=== PATIENT | male | born 1945 | race Caucasian/White ===

== ENCOUNTER 2017-09-23 09:28 | Day surgery (SDC) | payer MEDICARE, OTHER ==
--- NOTE | 2017-09-23 10:05 | PCM.HPR ---
H & P Addendum review - H & P Addendum Review Date of Original H & P: 09/14/17 Date Reviewed: 09/23/17 Time Reviewed: 10:00 Patient was Examined: No Changes
[2017-09-23] MEDS ORDERED: Midazolam 1 MG/ML 2 ML SDV ONE ×2 (10:06→10:07)
[2017-09-23] MEDS ORDERED: fentaNYL 100 MCG/2 ML SDV ONE ×2 (10:06→10:07)
[2017-09-23] MEDS ORDERED: Propofol 200 MG/20 ML SDV ONE ×2 (10:07)
--- NOTE | 2017-09-23 10:36 | PCM.OPNOTE ---
- General Post-Op/Procedure Note Date of Surgery/Procedure: 09/23/17 Operative Procedure(s): Colonoscopy Findings: normal Pre Op Diagnosis: Hx Colon Polyps Post-Op Diagnosis: Same Anesthesia Technique: MAC Primary Surgeon: Boone Sherman Anesthesia Provider: Vicky Chao Complications: None Condition: Good Free Text/Narrative:: Intake & Output 09/22/17 09/23/17 09/23/17 22:59 06:59 14:59 Intake Total 200 Balance 200
[2017-09-23] MEDS ORDERED: Sodium Chloride 0.9% 10 ML Syringe FLUSH PRN (11:45)
[2017-09-23] MEDS ORDERED: Lactated Ringers 1,000 ML IV SCH (11:45)
--- NOTE | 2017-09-23 12:00 | OR ---
Date of Procedure: 09/23/2017 PREOPERATIVE DIAGNOSIS: History of colon polyps. POSTOPERATIVE DIAGNOSIS: Normal colonoscopy. PROCEDURE: Colonoscopy. ANESTHESIA: IV sedation. DESCRIPTION OF PROCEDURE: The patient was brought to the procedure room, where he was placed on the left side and IV sedation administered. Digital rectal exam was performed which was normal. Colonoscope was inserted and advanced to the level of the cecum with some difficulty getting over the ileocecal valve, requiring changing him to the supine position. I was unable to get into the cecum which was confirmed by identifying the appendiceal lumen. The prep was good and surfaces were well visualized. Upon withdrawing the scope, the ascending, transverse, and descending colon were normal in appearance. Sigmoid colon and rectum were normal. Retroflexion was normal. Air was removed and the scope withdrawn. The patient tolerated the procedure well and returned to recovery in stable condition. Recommend routine colon surveillance again in 5 years. EVANS REDMOND MD /[id number]
== END 2017-09-23 11:50 | disposition home or self-care (01) ==
LOC: LL.SDS 09:28
PROVIDERS: ATTEND Surgery
DX: Z12.11 Encounter for screening for malignant neoplasm of colon (principal); I10 Essential (primary) hypertension; I25.10 Atherosclerotic heart disease of native coronary artery without angina pectoris; J44.9 Chronic obstructive pulmonary disease, unspecified; M25.561 Pain in right knee; E78.2 Mixed hyperlipidemia; F17.210 Nicotine dependence, cigarettes, uncomplicated; Z90.49 Acquired absence of other specified parts of digestive tract; Z98.52 Vasectomy status; Z93.0 Tracheostomy status; Z79.82 Long term (current) use of aspirin; Z79.891 Long term (current) use of opiate analgesic; Z79.899 Other long term (current) drug therapy; Z86.010 Personal history of colon polyps
CPT/HCPCS: G0121; J2250; J2704; J3010; 00812

== ENCOUNTER 2019-12-30 17:06 | Emergency (ER) | payer MEDICARE, OTHER ==
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
[2019-12-30] MEDS ORDERED: Bacitracin/Neomycin/Polymyxin B Oint 0.9 GM U/D Packet TOP ONE (17:44)
== END 2019-12-30 18:35 | disposition home or self-care (01) ==
LOC: LL.ED 17:06
DX: S92.424A Nondisplaced fracture of distal phalanx of right great toe, initial encounter for closed fracture (principal); S91.201A Unspecified open wound of right great toe with damage to nail, initial encounter; S90.31XA Contusion of right foot, initial encounter; M89.49 Other hypertrophic osteoarthropathy, multiple sites; F17.210 Nicotine dependence, cigarettes, uncomplicated; I25.10 Atherosclerotic heart disease of native coronary artery without angina pectoris; I10 Essential (primary) hypertension; J44.9 Chronic obstructive pulmonary disease, unspecified; F41.9 Anxiety disorder, unspecified; F32.9 Major depressive disorder, single episode, unspecified; G91.9 Hydrocephalus, unspecified; E78.00 Pure hypercholesterolemia, unspecified; I25.2 Old myocardial infarction; M19.90 Unspecified osteoarthritis, unspecified site; Z79.82 Long term (current) use of aspirin; W22.8XXA Striking against or struck by other objects, initial encounter; Z79.899 Other long term (current) drug therapy
CPT/HCPCS: 11730; 73620; 99283; J2001

== ENCOUNTER 2020-05-04 02:50 | Emergency (ER) | payer MEDICARE, OTHER ==
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
== END 2020-05-04 03:50 | disposition home or self-care (01) ==
LOC: LL.ED 02:50
DX: Z04.3 Encounter for examination and observation following other accident (principal); I25.10 Atherosclerotic heart disease of native coronary artery without angina pectoris; E78.00 Pure hypercholesterolemia, unspecified; I10 Essential (primary) hypertension; I25.2 Old myocardial infarction; J44.9 Chronic obstructive pulmonary disease, unspecified; M19.90 Unspecified osteoarthritis, unspecified site; F41.9 Anxiety disorder, unspecified; F17.210 Nicotine dependence, cigarettes, uncomplicated; F32.9 Major depressive disorder, single episode, unspecified; Z79.82 Long term (current) use of aspirin; Z79.899 Other long term (current) drug therapy
CPT/HCPCS: 96374; 99284-25

== ENCOUNTER 2020-08-10 00:46 | Inpatient (IN) | payer MEDICARE, OTHER ==
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
[2020-08-10 01:36] LABS: CHLORIDE,CL 100 mmol/L (98-107); SODIUM,NA 134 mmol/L (136-145)
[2020-08-10] MEDS ORDERED: methylPREDNISolone Sodium Succinate 125 MG/2 ML SDV IVPUSH ONE ×2 (01:52→21:14)
[2020-08-10] MEDS: Albuterol/Ipratropium 3.0-0.5 MG/3 ML Neb Soln NEB SCH ×4 (03:01→19:27)
[2020-08-10] MEDS: Sodium Chloride 0.9% 10 ML Syringe FLUSH PRN ×2 (03:12→21:30)
[2020-08-10] MEDS ORDERED: QUEtiapine 100 MG Tab PO STA (03:21)
[2020-08-10] MEDS ORDERED: ALPRAZolam 0.25 MG Tab PO ONE (03:23)
[2020-08-10] MEDS: Lisinopril 20 MG Tab PO SCH (07:56)
[2020-08-10] MEDS ORDERED: Metoprolol Succinate 25 MG Tab.ER PO SCH (08:00)
[2020-08-10] MEDS ORDERED: Nicotine 21 MG/24 Hr Patch TRDERM SCH (15:30)
--- NOTE | 2020-08-10 15:45 | PCM.PN ---
- General Info Date of Service: 08/10/20 Admission Dx/Problem (Free Text): Weakness/falls/dysequilibrium/COPD Subjective Update: Patient reports that his shortness of breath has improved on the nebs Functional Status: Reports: Pain Controlled, Tolerating Diet, Urinating. Denies: Ambulating, New Symptoms - Review of Systems General: Reports: Weakness. Denies: Fever, Malaise, Chills, Night Sweats HEENT: Reports: Glasses. Denies: Headaches, Sinus Congestion, Sore Throat, Visual Changes Pulmonary: Reports: Shortness of Breath, Cough (smokers cough/no acute changes), Wheezing. Denies: Pleuritic Chest Pain, Sputum, Hemoptysis Cardiovascular: Reports: Dyspnea on Exertion, Lightheadedness, Other. Denies: Chest Pain, Palpitations, Orthopnea, PND, Edema Gastrointestinal: Reports: No Symptoms Genitourinary: Denies: Dysuria, Frequency, Burning, Pain, Hematuria, Flank Pain Musculoskeletal: Reports: Other (no acute changes from baseline) Skin: Reports: No Symptoms Neurological: Reports: Dizziness, Difficulty Walking, Weakness. Denies: Confusion, Headache, Numbness, Paresthesia, Pre-Existing Deficit, Trouble Speaking, Change in Speech Psychiatric: Reports: No Symptoms - Patient Data Vitals - Most Recent: Last Vital Signs Temp 36.6 C 08/10/20 12:00 Pulse 96 08/10/20 12:00 Resp 17 08/10/20 12:00 BP 114/63 08/10/20 12:00 Pulse Ox 91 L 08/10/20 12:00 Weight - Most Recent: 99.79 kg I&O - Last 24 Hours: Intake & Output 08/10/20 08/10/20 08/10/20 06:59 14:59 22:59 Intake Total 400 Output Total 200 475 Balance -200 -75 Lab Results Last 24 Hours: Laboratory Results - last 24 hr 08/10/20 08/10/20 08/10/20 Range/Units 01:10 01:10 01:10 WBC 11.6 H (4.0-10.2) K/uL RBC 4.11 L (4.33-5.41) M/uL Hgb 14.1 (13.1-16.8) g/dL Hct 40.1 (39.0-49.0) % MCV 97.6 (84.0-98.0) fL MCH 34.3 H (28.2-33.3) pg MCHC 35.2 (31.7-36.0) g/dL RDW 12.0 (11.2-14.1) % Plt Count 226 (150-350) K/uL Neut % (Auto) 84.0 H (45.0-80.0) % Lymph % (Auto) 8.5 L (10.0-50.0) % [place]ie % (Auto) 7.4 (2.0-14.0) % Eos % (Auto) 0.0 (0.0-5.0) % Baso % (Auto) 0.1 (0.0-2.0) % Neut # (Auto) 9.71 H (1.40-7.00) K/uL Lymph # (Auto) 0.98 (0.50-3.50) K/uL [place] # (Auto) 0.85 (0.00-1.00) K/uL Eos # (Auto) 0.00 (0.00-0.50) K/uL Baso # (Auto) 0.01 (0.00-0.20) K/uL Sodium 134 L (136-145) mmol/L Potassium 4.5 (3.5-5.1) mmol/L Chloride 100 (98-107) mmol/L Carbon Dioxide 24.4 (21.0-32.0) mmol/L BUN 29 H (7-18) mg/dL Creatinine 0.84 (0.51-1.17) mg/dL Est Cr Clr Drug Dosing 80.87 mL/min Estimated GFR (MDRD) > 60 mL/min Glucose 131 H (70-99) mg/dL Lactic Acid 1.8 (0.4-2.0) mmol/L Calcium 9.2 (8.5-10.1) mg/dL Magnesium 2.0 (1.8-2.4) mg/dL Total Bilirubin 0.5 (0.2-1.0) mg/dL AST 24 (15-37) U/L ALT 41 (12-78) U/L Alkaline Phosphatase 98 (46-116) IU/L NT-Pro-B Natriuret Pep 60 (0-125) pg/mL Total Protein 7.2 (6.4-8.2) g/dL Albumin 3.5 (3.4-5.0) g/dL Specimen Type Urine Color Urine Appearance Urine pH (5.0-9.0) Ur Specific [place] (1.005-1.030) Urine Protein (NEGATIVE) mg/dL Urine Glucose (UA) (NEGATIVE) mg/dL Urine Ketones (NEGATIVE) mg/dL Urine Occult Blood (NEGATIVE) Urine Nitrite (NEGATIVE) Urine Bilirubin (NEGATIVE) Urine Urobilinogen (0.2-1.0) E.U./dL Ur Leukocyte Esterase (NEGATIVE) Urine RBC /HPF Urine WBC /HPF Ur Epithelial Cells /LPF Urine Bacteria (NONE TO FEW) /HPF Urine Mucus (NEGATIVE) /LPF SARS-CoV-2 RNA (VINH) (NEGATIVE) 08/10/20 08/10/20 Range/Units 01:44 07:46 WBC (4.0-10.2) K/uL RBC (4.33-5.41) M/uL Hgb (13.1-16.8) g/dL Hct (39.0-49.0) % MCV (84.0-98.0) fL MCH (28.2-33.3) pg MCHC (31.7-36.0) g/dL RDW (11.2-14.1) % Plt Count (150-350) K/uL Neut % (Auto) (45.0-80.0) % Lymph % (Auto) (10.0-50.0) % [place] % (Auto) (2.0-14.0) % Eos % (Auto) (0.0-5.0) % Baso % (Auto) (0.0-2.0) % Neut # (Auto) (1.40-7.00) K/uL Lymph # (Auto) (0.50-3.50) K/uL [place]ie # (Auto) (0.00-1.00) K/uL Eos # (Auto) (0.00-0.50) K/uL Baso # (Auto) (0.00-0.20) K/uL Sodium (136-145) mmol/L Potassium (3.5-5.1) mmol/L Chloride (98-107) mmol/L Carbon Dioxide (21.0-32.0) mmol/L BUN (7-18) mg/dL Creatinine (0.51-1.17) mg/dL Est Cr Clr Drug Dosing mL/min Estimated GFR (MDRD) mL/min Glucose (70-99) mg/dL Lactic Acid (0.4-2.0) mmol/L Calcium (8.5-10.1) mg/dL Magnesium (1.8-2.4) mg/dL Total Bilirubin (0.2-1.0) mg/dL AST (15-37) U/L ALT (12-78) U/L Alkaline Phosphatase (46-116) IU/L NT-Pro-B Natriuret Pep (0-125) pg/mL Total Protein (6.4-8.2) g/dL Albumin (3.4-5.0) g/dL Specimen Type Urinvoid Urine Color Dark yellow Urine Appearance Clear Urine pH 6.0 (5.0-9.0) Ur Specific [place] >= 1.030 (1.005-1.030) Urine Protein Trace H (NEGATIVE) mg/dL Urine Glucose (UA) Negative (NEGATIVE) mg/dL Urine Ketones Negative (NEGATIVE) mg/dL Urine Occult Blood Negative (NEGATIVE) Urine Nitrite Negative (NEGATIVE) Urine Bilirubin Negative (NEGATIVE) Urine Urobilinogen 0.2 (0.2-1.0) E.U./dL Ur Leukocyte Esterase Negative (NEGATIVE) Urine RBC 5-10 H /HPF Urine WBC 0-5 /HPF Ur Epithelial Cells Rare /LPF Urine Bacteria Rare (NONE TO FEW) /HPF Urine Mucus Few H (NEGATIVE) /LPF SARS-CoV-2 RNA (VINH) Negative (NEGATIVE) Med Orders - Current: Current Medications Albuterol/Ipratropium (Albuterol/Ipratropium 3.0-0.5 Mg/3 Ml Neb Soln) 3 ml NEB Q6HRRT [facility] Last Admin: 08/10/20 14:07 Dose: 3 ml Documented by: Alprazolam (Alprazolam 0.25 Mg Tab) 0.5 mg PO BEDTIME [facility] Aspirin (Aspirin 325 Mg Tab) 325 mg PO BEDTIME [facility] Atorvastatin Calcium (Atorvastatin 40 Mg Tab) 80 mg PO BEDTIME [facility] Lisinopril (Lisinopril 20 Mg Tab) 20 mg PO DAILY [facility] Last Admin: 04/03/21 07:56 Dose: 20 mg Documented by: Meloxicam (Meloxicam 15 Mg Tab) 15 mg PO DAILY [facility] Last Admin: 08/10/20 07:56 Dose: 15 mg Documented by: Metoprolol Succinate (Metoprolol Succinate 25 Mg Tab.Er) 25 mg PO BID [facility] Last Admin: 08/10/20 07:56 Dose: 25 mg Documented by: Nicotine (Nicotine 21 Mg/24 Hr Patch) 21 mg TRDERM DAILY [facility] Quetiapine Fumarate (Quetiapine 100 Mg Tab) 50 mg PO BEDTIME [facility] Sodium Chloride (Sodium Chloride 0.9% 10 Ml Syringe) 10 ml FLUSH ASDIRECTED PRN PRN Reason: other Last Admin: 08/10/20 03:12 Dose: 10 ml Documented by: Discontinued Medications Alprazolam (Alprazolam 0.25 Mg Tab) 0.5 mg PO ONETIME ONE Stop: 08/10/20 03:24 Last Admin: 08/10/20 03:32 Dose: 0.5 mg Documented by: Methylprednisolone Sodium Succinate (Methylprednisolone Sodium Succinate 125 Mg/2 Ml Sdv) 125 mg IVPUSH ONETIME ONE Stop: 08/10/20 01:53 Last Admin: 08/10/20 03:02 Dose: 125 mg Documented by: Quetiapine Fumarate (Quetiapine 100 Mg Tab) 50 mg PO ONETIME STA Stop: 08/10/20 03:22 Last Admin: 08/10/20 03:32 Dose: 50 mg Documented by: - Exam Quality Assessment: DVT Prophylaxis General: Alert, Oriented, Cooperative, No Acute Distress HEENT: Pupils Equal, Pupils Reactive, EOMI, Mucous Membr. Moist/[place] Neck: Supple Lungs: Normal Respiratory Effort, Decreased Breath Sounds, Wheezing. No: Crackles, Rales, Rhonchi, Stridor Cardiovascular: Regular Rate, Regular Rhythm, No Murmurs GI/Abdominal Exam: Normal Bowel Sounds, Soft, Non-Tender, No Distention (Male) Exam: Deferred Back Exam: No: CVA Tenderness (L), CVA Tenderness (R), Muscle Spasm Extremities: Non-Tender, No Pedal Edema, Normal Capillary Refill, Other (equal tone/strength bilaterally) Skin: Warm, Dry, Intact Neurological: No New Focal Deficit Psy/Mental Status: Alert, Normal Affect, Normal Mood #1 Interpretation EKG Date: 08/10/20 Time: 07:20 Rhythm: NSR Rate (Beats/Min): 83 [place]: Normal P-Wave: Present QRS: Normal ST-T: Normal QT: Normal - Patient Data Lab Results Last 24 hrs: Laboratory Results - last 24 hr 08/10/20 08/10/20 08/10/20 Range/Units 01:10 01:10 01:10 WBC 11.6 H (4.0-10.2) K/uL RBC 4.11 L (4.33-5.41) M/uL Hgb 14.1 (13.1-16.8) g/dL Hct 40.1 (39.0-49.0) % MCV 97.6 (84.0-98.0) fL MCH 34.3 H (28.2-33.3) pg MCHC 35.2 (31.7-36.0) g/dL RDW 12.0 (11.2-14.1) % Plt Count 226 (150-350) K/uL Neut % (Auto) 84.0 H (45.0-80.0) % Lymph % (Auto) 8.5 L (10.0-50.0) % [place] % (Auto) 7.4 (2.0-14.0) % Eos % (Auto) 0.0 (0.0-5.0) % Baso % (Auto) 0.1 (0.0-2.0) % Neut # (Auto) 9.71 H (1.40-7.00) K/uL Lymph # (Auto) 0.98 (0.50-3.50) K/uL [place] # (Auto) 0.85 (0.00-1.00) K/uL Eos # (Auto) 0.00 (0.00-0.50) K/uL Baso # (Auto) 0.01 (0.00-0.20) K/uL Sodium 134 L (136-145) mmol/L Potassium 4.5 (3.5-5.1) mmol/L Chloride 100 (98-107) mmol/L Carbon Dioxide 24.4 (21.0-32.0) mmol/L BUN 29 H (7-18) mg/dL Creatinine 0.84 (0.51-1.17) mg/dL Est Cr Clr Drug Dosing 80.87 mL/min Estimated GFR (MDRD) > 60 mL/min Glucose 131 H (70-99) mg/dL Lactic Acid 1.8 (0.4-2.0) mmol/L Calcium 9.2 (8.5-10.1) mg/dL Magnesium 2.0 (1.8-2.4) mg/dL Total Bilirubin 0.5 (0.2-1.0) mg/dL AST 24 (15-37) U/L ALT 41 (12-78) U/L Alkaline Phosphatase 98 (46-116) IU/L NT-Pro-B Natriuret Pep 60 (0-125) pg/mL Total Protein 7.2 (6.4-8.2) g/dL Albumin 3.5 (3.4-5.0) g/dL Specimen Type Urine Color Urine Appearance Urine pH (5.0-9.0) Ur Specific [place] (1.005-1.030) Urine Protein (NEGATIVE) mg/dL Urine Glucose (UA) (NEGATIVE) mg/dL Urine Ketones (NEGATIVE) mg/dL Urine Occult Blood (NEGATIVE) Urine Nitrite (NEGATIVE) Urine Bilirubin (NEGATIVE) Urine Urobilinogen (0.2-1.0) E.U./dL Ur Leukocyte Esterase (NEGATIVE) Urine RBC /HPF Urine WBC /HPF Ur Epithelial Cells /LPF Urine Bacteria (NONE TO FEW) /HPF Urine Mucus (NEGATIVE) /LPF SARS-CoV-2 RNA (VINH) (NEGATIVE) 08/10/20 08/10/20 Range/Units 01:44 07:46 WBC (4.0-10.2) K/uL RBC (4.33-5.41) M/uL Hgb (13.1-16.8) g/dL Hct (39.0-49.0) % MCV (84.0-98.0) fL MCH (28.2-33.3) pg MCHC (31.7-36.0) g/dL RDW (11.2-14.1) % Plt Count (150-350) K/uL Neut % (Auto) (45.0-80.0) % Lymph % (Auto) (10.0-50.0) % [place] % (Auto) (2.0-14.0) % Eos % (Auto) (0.0-5.0) % Baso % (Auto) (0.0-2.0) % Neut # (Auto) (1.40-7.00) K/uL Lymph # (Auto) (0.50-3.50) K/uL [place] # (Auto) (0.00-1.00) K/uL Eos # (Auto) (0.00-0.50) K/uL Baso # (Auto) (0.00-0.20) K/uL Sodium (136-145) mmol/L Potassium (3.5-5.1) mmol/L Chloride (98-107) mmol/L Carbon Dioxide (21.0-32.0) mmol/L BUN (7-18) mg/dL Creatinine (0.51-1.17) mg/dL Est Cr Clr Drug Dosing mL/min Estimated GFR (MDRD) mL/min Glucose (70-99) mg/dL Lactic Acid (0.4-2.0) mmol/L Calcium (8.5-10.1) mg/dL Magnesium (1.8-2.4) mg/dL Total Bilirubin (0.2-1.0) mg/dL AST (15-37) U/L ALT (12-78) U/L Alkaline Phosphatase (46-116) IU/L NT-Pro-B Natriuret Pep (0-125) pg/mL Total Protein (6.4-8.2) g/dL Albumin (3.4-5.0) g/dL Specimen Type Urinvoid Urine Color Dark yellow Urine Appearance Clear Urine pH 6.0 (5.0-9.0) Ur Specific [place] >= 1.030 (1.005-1.030) Urine Protein Trace H (NEGATIVE) mg/dL Urine Glucose (UA) Negative (NEGATIVE) mg/dL Urine Ketones Negative (NEGATIVE) mg/dL Urine Occult Blood Negative (NEGATIVE) Urine Nitrite Negative (NEGATIVE) Urine Bilirubin Negative (NEGATIVE) Urine Urobilinogen 0.2 (0.2-1.0) E.U./dL Ur Leukocyte Esterase Negative (NEGATIVE) Urine RBC 5-10 H /HPF Urine WBC 0-5 /HPF Ur Epithelial Cells Rare /LPF Urine Bacteria Rare (NONE TO FEW) /HPF Urine Mucus Few H (NEGATIVE) /LPF SARS-CoV-2 RNA (VINH) Negative (NEGATIVE) Result Diagrams: 08/10/20 01:10 08/10/20 01:10 Sepsis Event Note - Evaluation Sepsis Screening Result: No Definite Risk - Focused Exam Vital Signs: Vital Signs Temp Temp Pulse Pulse Resp BP BP 08/10/20 12:00 36.6 C 96 17 114/63 08/10/20 07:56 90 129/68 08/10/20 07:00 36.4 C 90 20 129/68 Pulse Ox 08/10/20 12:00 91 L 08/10/20 07:56 08/10/20 07:00 91 L - Problem List & Annotations (1) COPD (chronic obstructive pulmonary disease) SNOMED Code(s): 62079229 Code(s): J44.9 - CHRONIC OBSTRUCTIVE PULMONARY DISEASE, UNSPECIFIED Status: Chronic Priority: High Current Visit: Yes Qualifiers: COPD type: emphysema Emphysema type: panlobular Qualified Code(s): J43.1 - Panlobular emphysema Annotation/Comment:: Significant wheezing noted/not able to move a lot of air during ER evaluation. Patient said he was at his normal "baseline" and did not feel that his COPD was contributing to his falls/weakness/dizziness. No recent history of fever bronchitic type symptoms. No handheld inhaler or nebulizer therapy. Note additional history of sleep apnea with CPAP noncompliance. Initiated DuoNeb treatments and gave single dose Solu-medrol to assess for improvement of COPD symptoms. He is still tight/wheezing today with O2 sats on room air in low 90s. Severity of wheezing improved and patient subjectively feels that the nebs have made a positive difference. (2) Recurrent falls SNOMED Code(s): 950983094 Code(s): R29.6 - REPEATED FALLS Status: Acute Priority: High Current Visit: Yes Annotation/Comment:: Long history of frequent falls. Somewhat worse. Poor balance/equilibrium that is progressing. COPD/poor oxygenation with ambulation may be contributing factor. (3) Generalized weakness SNOMED Code(s): 21575070 Code(s): R53.1 - WEAKNESS Status: Chronic Priority: High Current Visit: Yes Annotation/Comment:: Chronic weakness/deconditioning. Needs help getting off floor when he falls. (4) Osteoarthritis SNOMED Code(s): 980447789 Code(s): M19.90 - UNSPECIFIED OSTEOARTHRITIS, UNSPECIFIED SITE Status: Chronic Priority: Medium Current Visit: No Qualifiers: Osteoarthritis location: multiple joints Osteoarthritis type: primary Qualified Code(s): M89.49 - Other hypertrophic osteoarthropathy, multiple sites Annotation/Comment:: Otherwise stable by history with no other injuries or complaints. (5) Tobacco abuse disorder SNOMED Code(s): 552777189 Code(s): Z72.0 - TOBACCO USE Status: Chronic Priority: Medium Current Visit: No Annotation/Comment:: Tobacco cessation for the patient and his once again strongly encouraged, however he does not appear interested in this at time. (6) Coronary artery disease SNOMED Code(s): 35270178 Code(s): I25.10 - ATHSCL HEART DISEASE OF [place] CORONARY ARTERY W/O ANG PCT RS Status: Chronic Priority: Medium Current Visit: No Annotation/Comment:: No recent chest pain or anginal complaints (7) Hypertension SNOMED Code(s): 79754984 Code(s): I10 - ESSENTIAL (PRIMARY) HYPERTENSION Status: Chronic Priority: Medium Current Visit: No Qualifiers: Hypertension type: essential hypertension Qualified Code(s): I10 - Essential (primary) hypertension Annotation/Comment:: Stable in the emergency room. (8) Hydrocephalus SNOMED Code(s): 110652421 Code(s): G91.9 - HYDROCEPHALUS, UNSPECIFIED Status: Chronic Priority: Medium Current Visit: No Qualifiers: Hydrocephalus type: post-traumatic Qualified Code(s): G91.3 - Post-trau matic hydrocephalus, unspecified Annotation/Comment:: Traumatic brain injury 1969 as above. Stable neurological status by patient history with current disability. - Problem List Review Problem List Initiated/Reviewed/Updated: Yes - My Orders Last 24 Hours: My Active Orders 08/10/20 01:45 Ambulate [RC] ASDIRECTED Height and Weight [RC] UPON May Shower [RC] ASDIRECTED Oxygen Therapy [RC] .PRN VTE/DVT Education [RC] DAILY Vital Signs [RC] Q6HR Resuscitation Status Routine 08/10/20 01:46 Cardiac Monitoring [RC] Q2HR Pulse Oximetry [RC] .PRN 08/10/20 01:47 RT Aerosol Therapy [RC] 02,08,14,20 08/10/20 02:00 Albuterol/Ipratropium [DuoNeb 3.0-0.5 MG/3 ML] 3 ml NEB Q6HRRT 08/10/20 03:02 Sodium Chloride 0.9% [Saline Flush] 10 ml FLUSH ASDIRECTED PRN 08/10/20 07:21 Chest 1V Frontal [CR] Routine 08/10/20 Breakfast Heart Healthy Diet [DIET] 08/10/20 08:00 Meloxicam [Mobic] 15 mg PO DAILY Metoprolol Succinate [Toprol XL] 25 mg PO BID lisinopriL [Prinivil] 20 mg PO DAILY 08/10/20 15:23 CBC WITH AUTO DIFF [HEME] Routine COMPREHENSIVE METABOLIC PN,CMP [CHEM] Routine D Dimer [D-DIMER QUANTITATIVE] [COAG] Routine LACTIC ACID [CHEM] Routine TROPONIN I [CHEM] Routine 08/10/20 15:30 Nicotine [Habitrol] 21 mg TRDERM DAILY 08/10/20 15:36 Admission Status [Patient Status] [ADT] Routine 08/10/20 20:00 ALPRAZolam [Xanax] 0.5 mg PO BEDTIME Aspirin 325 mg PO BEDTIME QUEtiapine [SEROqueL] 50 mg PO BEDTIME atorvaSTATin [Lipitor] 80 mg PO BEDTIME - Assessment Assessment:: as above. Patient changed to full inpatient admission due to suspicion of COPD contributing to his symptoms and continued weakness/questionable safety at home. - Plan Plan:: As above. Continue nebs/solu-medrol and assess for improvement with strength/SOB/lightheadedness. Repeat labs ordered. Chest xray showed no focal pneumonia but showed poor inspiratory effort and bilateral changes suggestive of fibrosis/COPD. Pending formal Radiology review. No evidence of fluid overl oad/normal proBNP. Normal lactic. PT and OT consult Wednesday.
[2020-08-10] MEDS ORDERED: Enoxaparin 40 MG/0.4 ML Syringe SUBCUT SCH ×2 (16:00→20:00)
[2020-08-10] MEDS: atorvaSTATin 40 MG Tab PO SCH (19:26)
[2020-08-10] MEDS: Metoprolol Succinate 25 MG Tab.ER PO SCH (19:27)
[2020-08-10] MEDS: Nicotine 21 MG/24 Hr Patch TRDERM SCH (19:27)
[2020-08-10] MEDS: Aspirin 325 MG Tab PO SCH (19:28)
[2020-08-10] MEDS ORDERED: ALPRAZolam 0.25 MG Tab PO SCH (20:00)
[2020-08-10] MEDS ORDERED: QUEtiapine 100 MG Tab PO SCH (20:00)
[2020-08-10] MEDS: ALPRAZolam 0.25 MG Tab PO SCH (22:50)
[2020-08-10] MEDS: QUEtiapine 100 MG Tab PO SCH (22:50)
[2020-08-11] MEDS: Albuterol/Ipratropium 3.0-0.5 MG/3 ML Neb Soln NEB SCH ×5 (02:58→19:18)
[2020-08-11 08:11] LABS: CHLORIDE,CL 101 mmol/L (98-107); SODIUM,NA 134 mmol/L (136-145)
[2020-08-11] MEDS: Metoprolol Succinate 25 MG Tab.ER PO SCH ×2 (08:46→19:18)
[2020-08-11] MEDS: Lisinopril 20 MG Tab PO SCH (08:46)
[2020-08-11] MEDS ORDERED: Magnesium Hydroxide 400 MG/5 ML Susp 30 ML Cup PO PRN (13:56)
--- NOTE | 2020-08-11 16:39 | PCM.PN ---
- General Info Date of Service: 08/11/20 Admission Dx/Problem (Free Text): Weakness/falls/dysequilibrium/COPD Subjective Update: Patient reports that his shortness of breath has improved on the nebs Functional Status: Reports: Pain Controlled, Tolerating Diet, Ambulating (Only with assistance and does not want to go far/prefers to sit down.), Urinating. Denies: New Symptoms - Review of Systems General: Reports: Weakness (generalized), Fatigue. Denies: Fever, Malaise, Chills, Night Sweats HEENT: Denies: Headaches, Sinus Congestion, Sore Throat, Visual Changes Pulmonary: Reports: Shortness of Breath, Cough (minimal/smoker's cough/no acute changes), Wheezing. Denies: Pleuritic Chest Pain, Sputum, Hemoptysis Cardiovascular: Reports: Dyspnea on Exertion Gastrointestinal: Denies: Abdominal Pain, Constipation, Diarrhea, Melena, Nausea, Vomiting Genitourinary: Denies: Dysuria, Burning, Pain, Urgency, Incontinence, Hematuria, Retention, Flank Pain Musculoskeletal: Reports: Other (no acute changes from baseline) Skin: Denies: Rash Neurological: Reports: Difficulty Walking (chronic), Weakness (chronic). Denies: Confusion, Dizziness, Headache, Numbness, Paresthesia, Seizure, Syncope, Tingling, Change in Speech Psychiatric: Reports: No Symptoms - Patient Data Vitals - Most Recent: Last Vital Signs Temp 36.4 C 08/11/20 12:00 Pulse 75 08/11/20 12:00 Resp 20 08/11/20 12:00 BP 118/52 L 08/11/20 12:00 Pulse Ox 93 L 08/11/20 12:00 Weight - Most Recent: 99.79 kg I&O - Last 24 Hours: Intake & Output 08/11/20 08/11/20 08/11/20 06:59 14:59 22:59 Intake Total 840 Output Total 550 100 Balance -550 740 Lab Results Last 24 Hours: Laboratory Results - last 24 hr 08/11/20 08/11/20 08/11/20 Range/Units 07:28 07:28 07:28 WBC 10.0 (4.0-10.2) K/uL RBC 3.58 L (4.33-5.41) M/uL Hgb 12.5 L D (13.1-16.8) g/dL Hct 35.1 L (39.0-49.0) % MCV 98.0 (84.0-98.0) fL MCH 34.9 H (28.2-33.3) pg MCHC 35.6 (31.7-36.0) g/dL RDW 12.2 (11.2-14.1) % Plt Count 209 (150-350) K/uL Neut % (Auto) 88.9 H (45.0-80.0) % Lymph % (Auto) 7.0 L (10.0-50.0) % Terrell % (Auto) 4.1 (2.0-14.0) % Eos % (Auto) 0.0 (0.0-5.0) % Baso % (Auto) 0.0 (0.0-2.0) % Neut # (Auto) 8.86 H (1.40-7.00) K/uL Lymph # (Auto) 0.70 (0.50-3.50) K/uL Terrell # (Auto) 0.41 (0.00-1.00) K/uL Eos # (Auto) 0.00 (0.00-0.50) K/uL Baso # (Auto) 0.00 (0.00-0.20) K/uL D-Dimer, Quantitative 203 (0-400) ng/mL Sodium 134 L (136-145) mmol/L Potassium 4.6 (3.5-5.1) mmol/L Chloride 101 (98-107) mmol/L Carbon Dioxide 23.9 (21.0-32.0) mmol/L BUN 24 H (7-18) mg/dL Creatinine 0.77 (0.51-1.17) mg/dL Est Cr Clr Drug Dosing 88.22 mL/min Estimated GFR (MDRD) > 60 mL/min Glucose 160 H (70-99) mg/dL Lactic Acid (0.4-2.0) mmol/L Calcium 8.4 L (8.5-10.1) mg/dL Total Bilirubin 0.5 (0.2-1.0) mg/dL AST 44 H (15-37) U/L ALT 41 (12-78) U/L Alkaline Phosphatase 75 (46-116) IU/L Troponin I 0.007 (0.000-0.056) ng/mL Total Protein 6.1 L (6.4-8.2) g/dL Albumin 2.9 L (3.4-5.0) g/dL 08/11/20 Range/Units 07:28 WBC (4.0-10.2) K/uL RBC (4.33-5.41) M/uL Hgb (13.1-16.8) g/dL Hct (39.0-49.0) % MCV (84.0-98.0) fL MCH (28.2-33.3) pg MCHC (31.7-36.0) g/dL RDW (11.2-14.1) % Plt Count (150-350) K/uL Neut % (Auto) (45.0-80.0) % Lymph % (Auto) (10.0-50.0) % Terrell % (Auto) (2.0-14.0) % Eos % (Auto) (0.0-5.0) % Baso % (Auto) (0.0-2.0) % Neut # (Auto) (1.40-7.00) K/uL Lymph # (Auto) (0.50-3.50) K/uL Terrell # (Auto) (0.00-1.00) K/uL Eos # (Auto) (0.00-0.50) K/uL Baso # (Auto) (0.00-0.20) K/uL D-Dimer, Quantitative (0-400) ng/mL Sodium (136-145) mmol/L Potassium (3.5-5.1) mmol/L Chloride (98-107) mmol/L Carbon Dioxide (21.0-32.0) mmol/L BUN (7-18) mg/dL Creatinine (0.51-1.17) mg/dL Est Cr Clr Drug Dosing mL/min Estimated GFR (MDRD) mL/min Glucose (70-99) mg/dL Lactic Acid 2.1 H (0.4-2.0) mmol/L Calcium (8.5-10.1) mg/dL Total Bilirubin (0.2-1.0) mg/dL AST (15-37) U/L ALT (12-78) U/L Alkaline Phosphatase (46-116) IU/L Troponin I (0.000-0.056) ng/mL Total Protein (6.4-8.2) g/dL Albumin (3.4-5.0) g/dL Med Orders - Current: Current Medications Albuterol/Ipratropium (Albuterol/Ipratropium 3.0-0.5 Mg/3 Ml Neb Soln) 3 ml NEB Q6HRRT [facility] Last Admin: 08/11/20 14:30 Dose: 3 ml Documented by: Alprazolam (Alprazolam 0.25 Mg Tab) 0.5 mg PO DAILY@2300 [facility] Last Admin: 08/10/20 22:50 Dose: 0.5 mg Documented by: Aspirin (Aspirin 325 Mg Tab) 325 mg PO BEDTIME [facility] Last Admin: 08/10/20 19:28 Dose: 325 mg Documented by: Atorvastatin Calcium (Atorvastatin 40 Mg Tab) 80 mg PO BEDTIME [facility] Last Admin: 08/10/20 19:26 Dose: 80 mg Documented by: Lisinopril (Lisinopril 20 Mg Tab) 20 mg PO DAILY [facility] Last Admin: 08/11/20 08:46 Dose: 20 mg Documented by: Magnesium Hydroxide (Magnesium Hydroxide 400 Mg/5 Ml Susp 30 Ml Cup) 30 ml PO DAILY PRN PRN Reason: Constipation Last Admin: 08/11/20 14:30 Dose: 30 ml Documented by: Meloxicam (Meloxicam 15 Mg Tab) 15 mg PO DAILY [facility] Last Admin: 08/11/20 08:46 Dose: 15 mg Documented by: Metoprolol Succinate (Metoprolol Succinate 25 Mg Tab.Er) 25 mg PO Q12HR [facility] Last Admin: 08/11/20 08:46 Dose: 25 mg Documented by: Nicotine (Nicotine 21 Mg/24 Hr Patch) 21 mg TRDERM BEDTIME [facility] Last Admin: 08/10/20 19:27 Dose: Not Given Documented by: Quetiapine Fumarate (Quetiapine 100 Mg Tab) 50 mg PO DAILY@2300 [facility] Last Admin: 08/10/20 22:50 Dose: 50 mg Documented by: Sodium Chloride (Sodium Chloride 0.9% 10 Ml Syringe) 10 ml FLUSH ASDIRECTED PRN PRN Reason: other Last Admin: 08/10/20 21:30 Dose: 10 ml Documented by: Discontinued Medications Alprazolam (Alprazolam 0.25 Mg Tab) 0.5 mg PO BEDTIME [facility] Last Admin: 08/10/20 20:47 Dose: Not Given Documented by: Alprazolam (Alprazolam 0.25 Mg Tab) 0.5 mg PO ONETIME ONE Stop: 08/10/20 03:24 Last Admin: 08/10/20 03:32 Dose: 0.5 mg Documented by: Enoxaparin Sodium (Enoxaparin 40 Mg/0.4 Ml Syringe) 40 mg SUBCUT Q24H [facility] Last Admin: 08/10/20 18:10 Dose: Not Given Documented by: Enoxaparin Sodium (Enoxaparin 40 Mg/0.4 Ml Syringe) 40 mg SUBCUT Q24H [facility] Last Admin: 08/10/20 19:28 Dose: 40 mg Documented by: Methylprednisolone Sodium Succinate (Methylprednisolone Sodium Succinate 125 Mg/2 Ml Sdv) 125 mg IVPUSH ONETIME ONE Stop: 08/10/20 01:53 Last Admin: 08/10/20 03:02 Dose: 125 mg Documented by: Methylprednisolone Sodium Succinate (Methylprednisolone Sodium Succinate 125 Mg/2 Ml Sdv) 125 mg IVPUSH ONETIME ONE Stop: 08/10/20 21:15 Last Admin: 08/10/20 21:30 Dose: 125 mg Documented by: Metoprolol Succinate (Metoprolol Succinate 25 Mg Tab.Er) 25 mg PO BID [facility] Last Admin: 08/10/20 07:56 Dose: 25 mg Documented by: Nicotine (Nicotine 21 Mg/24 Hr Patch) 21 mg TRDERM DAILY [facility] Last Admin: 08/10/20 18:07 Dose: Not Given Documented by: Quetiapine Fumarate (Quetiapine 100 Mg Tab) 50 mg PO BEDTIME [facility] Last Admin: 08/10/20 20:47 Dose: Not Given Documented by: Quetiapine Fumarate (Quetiapine 100 Mg Tab) 50 mg PO ONETIME [facility] Stop: 08/10/20 03:22 Last Admin: 08/10/20 03:32 Dose: 50 mg Documented by: Quetiapine Fumarate (Quetiapine 100 Mg Tab) 50 mg PO BEDTIME [facility] - Exam General: Alert, Oriented, Cooperative, No Acute Distress HEENT: Pupils Equal, Pupils Reactive, EOMI, Mucous Membr. Moist/[place] Neck: Supple Lungs: Decreased Breath Sounds, Wheezing (moderate/bilat) Cardiovascular: Regular Rate, Regular Rhythm GI/Abdominal Exam: Normal Bowel Sounds, Soft, Non-Tender, No Distention Back Exam: No: CVA Tenderness (L), CVA Tenderness (R), Muscle Spasm, Paraspinal Tenderness, Vertebral Tenderness Extremities: Non-Tender, Normal Capillary Refill Skin: Warm, Dry Neurological: No New Focal Deficit Psy/Mental Status: Alert, Normal Affect, Normal Mood - Patient Data Lab Results Last 24 hrs: Laboratory Results - last 24 hr 08/11/20 08/11/20 08/11/20 Range/Units 07:28 07:28 07:28 WBC 10.0 (4.0-10.2) K/uL RBC 3.58 L (4.33-5.41) M/uL Hgb 12.5 L D (13.1-16.8) g/dL Hct 35.1 L (39.0-49.0) % MCV 98.0 (84.0-98.0) fL MCH 34.9 H (28.2-33.3) pg MCHC 35.6 (31.7-36.0) g/dL RDW 12.2 (11.2-14.1) % Plt Count 209 (150-350) K/uL Neut % (Auto) 88.9 H (45.0-80.0) % Lymph % (Auto) 7.0 L (10.0-50.0) % Terrell % (Auto) 4.1 (2.0-14.0) % Eos % (Auto) 0.0 (0.0-5.0) % Baso % (Auto) 0.0 (0.0-2.0) % Neut # (Auto) 8.86 H (1.40-7.00) K/uL Lymph # (Auto) 0.70 (0.50-3.50) K/uL Terrell # (Auto) 0.41 (0.00-1.00) K/uL Eos # (Auto) 0.00 (0.00-0.50) K/uL Baso # (Auto) 0.00 (0.00-0.20) K/uL D-Dimer, Quantitative 203 (0-400) ng/mL Sodium 134 L (136-145) mmol/L Potassium 4.6 (3.5-5.1) mmol/L Chloride 101 (98-107) mmol/L Carbon Dioxide 23.9 (21.0-32.0) mmol/L BUN 24 H (7-18) mg/dL Creatinine 0.77 (0.51-1.17) mg/dL Est Cr Clr Drug Dosing 88.22 mL/min Estimated GFR (MDRD) > 60 mL/min Glucose 160 H (70-99) mg/dL Lactic Acid (0.4-2.0) mmol/L Calcium 8.4 L (8.5-10.1) mg/dL Total Bilirubin 0.5 (0.2-1.0) mg/dL AST 44 H (15-37) U/L ALT 41 (12-78) U/L Alkaline Phosphatase 75 (46-116) IU/L Troponin I 0.007 (0.000-0.056) ng/mL Total Protein 6.1 L (6.4-8.2) g/dL Albumin 2.9 L (3.4-5.0) g/dL 08/11/20 Range/Units 07:28 WBC (4.0-10.2) K/uL RBC (4.33-5.41) M/uL Hgb (13.1-16.8) g/dL Hct (39.0-49.0) % MCV (84.0-98.0) fL MCH (28.2-33.3) pg MCHC (31.7-36.0) g/dL RDW (11.2-14.1) % Plt Count (150-350) K/uL Neut % (Auto) (45.0-80.0) % Lymph % (Auto) (10.0-50.0) % Terrell % (Auto) (2.0-14.0) % Eos % (Auto) (0.0-5.0) % Baso % (Auto) (0.0-2.0) % Neut # (Auto) (1.40-7.00) K/uL Lymph # (Auto) (0.50-3.50) K/uL Terrell # (Auto) (0.00-1.00) K/uL Eos # (Auto) (0.00-0.50) K/uL Baso # (Auto) (0.00-0.20) K/uL D-Dimer, Quantitative (0-400) ng/mL Sodium (136-145) mmol/L Potassium (3.5-5.1) mmol/L Chloride (98-107) mmol/L Carbon Dioxide (21.0-32.0) mmol/L BUN (7-18) mg/dL Creatinine (0.51-1.17) mg/dL Est Cr Clr Drug Dosing mL/min Estimated GFR (MDRD) mL/min Glucose (70-99) mg/dL Lactic Acid 2.1 H (0.4-2.0) mmol/L Calcium (8.5-10.1) mg/dL Total Bilirubin (0.2-1.0) mg/dL AST (15-37) U/L ALT (12-78) U/L Alkaline Phosphatase (46-116) IU/L Troponin I (0.000-0.056) ng/mL Total Protein (6.4-8.2) g/dL Albumin (3.4-5.0) g/dL Result Diagrams: 08/11/20 07:28 08/11/20 07:28 Sepsis Event Note - Evaluation Sepsis Screening Result: No Definite Risk - Focused Exam Vital Signs: Vital Signs Temp Pulse Pulse Resp BP BP Pulse Ox 08/11/20 12:00 36.4 C 75 20 118/52 L 93 L 08/11/20 08:46 69 114/53 L 08/11/20 06:00 36.4 C 69 20 114/53 L 91 L - Problem List & Annotations (1) COPD (chronic obstructive pulmonary disease) SNOMED Code(s): 87979240 Code(s): J44.9 - CHRONIC OBSTRUCTIVE PULMONARY DISEASE, UNSPECIFIED Status: Chronic Priority: High Current Visit: Yes Qualifiers: COPD type: emphysema Emphysema type: panlobular Qualified Code(s): J43.1 - Panlobular emphysema Annotation/Comment:: Significant wheezing noted/not able to move a lot of air during ER evaluation. Patient said he was at his normal "baseline" and did not feel that his COPD was contributing to his falls/weakness/dizziness. No recent history of fever bronchitic type symptoms. No handheld inhaler or nebulizer therapy. Note additional history of sleep apnea with CPAP noncompliance. Initiated DuoNeb treatments and gave single dose Solu-medrol to assess for impr ovement of COPD symptoms. He is still tight/wheezing today with O2 sats on room air in low 90s. Severity of wheezing improved and patient subjectively feels that the nebs have made a positive difference. (2) Recurrent falls SNOMED Code(s): 950731893 Code(s): R29.6 - REPEATED FALLS Status: Acute Priority: High Current Visit: Yes Annotation/Comment:: Long history of frequent falls. Somewhat worse. Poor balance/equilibrium that is progressing. COPD/poor oxygenation with ambulation may be contributing factor. (3) Generalized weakness SNOMED Code(s): 06833103 Code(s): R53.1 - WEAKNESS Status: Chronic Priority: High Current Visit: Yes Annotation/Comment:: Chronic weakness/deconditioning. Needs help getting off floor when he falls. (4) Osteoarthritis SNOMED Code(s): 144494337 Code(s): M19.90 - UNSPECIFIED OSTEOARTHRITIS, UNSPECIFIED SITE Status: Chronic Priority: Medium Current Visit: No Qualifiers: Osteoarthritis location: multiple joints Osteoarthritis type: primary Qualified Code(s): M89.49 - Other hypertrophic osteoarthropathy, multiple sites Annotation/Comment:: Otherwise stable by history with no other injuries or complaints. (5) Tobacco abuse disorder SNOMED Code(s): 087785745 Code(s): Z72.0 - TOBACCO USE Status: Chronic Priority: Medium Current Visit: No Annotation/Comment:: Tobacco cessation for the patient and his once again strongly encouraged, however he does not appear interested in this at time. (6) Coronary artery disease SNOMED Code(s): 06121564 Code(s): I25.10 - ATHSCL HEART DISEASE OF [place] CORONARY ARTERY W/O ANG PCTRS Status: Chronic Priority: Medium Current Visit: No Annotation/Com ment:: No recent chest pain or anginal complaints (7) Hypertension SNOMED Code(s): 18537082 Code(s): I10 - ESSENTIAL (PRIMARY) HYPERTENSION Status: Chronic Priority: Medium Current Visit: No Qualifiers: Hypertension type: essential hypertension Qualified Code(s): I10 - [place] (primary) hypertension Annotation/Comment:: Stable in the emergency room. (8) Hydrocephalus SNOMED Code(s): 828655385 Code(s): G91.9 - HYDROCEPHALUS, UNSPECIFIED Status: Chronic Priority: Medium Current Visit: No Qualifiers: Hydrocephalus type: post-traumatic Qualified Code(s): G91.3 - Post- traumatic hydrocephalus, unspecified Annotation/Comment:: Traumatic brain injury 1969 as above. Stable neurological status by patient history with current disability. - Problem List Review Problem List Initiated/Reviewed/Updated: Yes - My Orders Last 24 Hours: My Active Orders 08/10/20 15:36 Admission Status [Patient Status] [ADT] Routine 08/10/20 15:55 Consult to Case Management/Vat Packer [CONS] Routine OT Evaluation and Treatment [CONS] Routine PT Evaluation and Treatment [CONS] Routine 08/10/20 20:00 Aspirin 325 mg PO BEDTIME Metoprolol Succinate [Toprol XL] 25 mg PO Q12HR Nicotine [Habitrol] 21 mg TRDERM BEDTIME atorvaSTATin [Lipitor] 80 mg PO BEDTIME 08/10/20 23:00 ALPRAZolam [Xanax] 0.5 mg PO DAILY@2300 QUEtiapine [SEROqueL] 50 mg PO DAILY@2300 08/11/20 13:56 Magnesium Hydroxide [Milk of Magnesia] 30 ml PO DAILY PRN 08/11/20 15:12 OCCULT BLOOD DIAGNOSTIC [OP] Routine - Assessment Assessment:: as above. Patient changed to full inpatient admission due to suspicion of COPD contributing to his symptoms and continued weakness/questionable safety at home. - Plan Plan:: As above. Continue nebs/solu-medrol and assess for improvement with strength/SOB/lightheadedness. Repeat labs ordered. Chest xray showed no focal pneumonia but showed poor inspiratory effort and bilateral changes suggestive of fibrosis/COPD. Pending formal Radiology review. No evidence of fluid overload/normal proBNP. Normal lactic at time of admission, slightly increased today. Patient reports feeling improved as far as breathing/wheezing is concerned. No new changes. PT and OT consult tomorrow. Case management to consult tomorrow also and look into options for placement for patient. Patient's is unable to care for him at home safely given their advanced age and patient's increasingly poor mobility/strength and increased falls. Depending on outcomes of consults, patient may be able to be discharged from inpatient care on Wednesday.
[2020-08-11] MEDS: Aspirin 325 MG Tab PO SCH (19:17)
[2020-08-11] MEDS: atorvaSTATin 40 MG Tab PO SCH (19:18)
[2020-08-11] MEDS: Nicotine 21 MG/24 Hr Patch TRDERM SCH (19:18)
[2020-08-11] MEDS ORDERED: QUEtiapine 100 MG Tab PO SCH (20:00)
[2020-08-11] MEDS: ALPRAZolam 0.25 MG Tab PO SCH (23:00)
[2020-08-11] MEDS: QUEtiapine 100 MG Tab PO SCH (23:00)
[2020-08-11] MEDS: Sodium Chloride 0.9% 10 ML Syringe FLUSH PRN (23:01)
[2020-08-12] MEDS: Albuterol/Ipratropium 3.0-0.5 MG/3 ML Neb Soln NEB SCH ×4 (02:00→19:21)
[2020-08-12] MEDS: Metoprolol Succinate 25 MG Tab.ER PO SCH ×2 (08:00→19:21)
[2020-08-12] MEDS: Lisinopril 20 MG Tab PO SCH (08:00)
--- NOTE | 2020-08-12 15:38 | PCM.PN ---
- General Info Date of Service: 08/12/20 Admission Dx/Problem (Free Text): Weakness/falls/dysequilibrium/COPD Subjective Update: Patient reports that his shortness of breath has improved on the nebs. No change in ability to ambulate/balance. No new complaints. Functional Status: Reports: Pain Controlled, Tolerating Diet, Ambulating (with assist of 1. Very unsteady gait. ), Urinating - Review of Systems General: Reports: Weakness (chronic), Fatigue (chronic). Denies: Fever, Malaise, Chills, Night Sweats HEENT: Denies: Ear Pain, Eye Pain, Headaches, Sinus Congestion, Sore Throat, Rhinitis, Visual Changes Pulmonary: Reports: Shortness of Breath (chronic/improved), Cough (chronic/mild), Wheezing (chronic/improved). Denies: Pleuritic Chest Pain, Sputum, Hemoptysis Cardiovascular: Reports: Dyspnea on Exertion. Denies: Chest Pain, Palpitations, Orthopnea, PND, Edema, Lightheadedness Gastrointestinal: Reports: No Symptoms. Denies: Abdominal Pain, Constipation, Diarrhea, Melena, Nausea, Vomiting Genitourinary: Reports: No Symptoms Musculoskeletal: Reports: Other (no acute changes from baseline) Skin: Reports: No Symptoms Neurological: Reports: Difficulty Walking (chronic/unchanged per PT), Weakness (chronic), Gait Disturbance (chronic/unchanged per PT). Denies: Confusion, Headache, Syncope, Tingling, Tremors, Change in Speech Psychiatric: Reports: No Symptoms - Patient Data Vitals - Most Recent: Last Vital Signs Temp 36.1 C 08/12/20 07:22 Pulse 72 08/12/20 08:00 Resp 14 08/12/20 07:22 BP 126/67 08/12/20 08:00 Pulse Ox 92 L 08/12/20 07:22 Weight - Most Recent: 99.79 kg I&O - Last 24 Hours: Intake & Output 08/12/20 08/12/20 08/12/20 06:59 14:59 22:59 Intake Total 180 Output Total 1350 325 Balance -1350 -145 Med Orders - Current: Current Medications Albuterol/Ipratropium (Albuterol/Ipratropium 3.0-0.5 Mg/3 Ml Neb Soln) 3 ml NEB Q6HRRT [facility]BB[facility] Last Admin: 08/12/20 13:25 Dose: 3 ml Documented by: Alprazolam (Alprazolam 0.25 Mg Tab) 0.5 mg PO DAILY@2300 [facility] Last Admin: 08/11/20 23:00 Dose: 0.5 mg Documented by: Aspirin (Aspirin 325 Mg Tab) 325 mg PO BEDTIME [facility] Last Admin: 08/11/20 19:17 Dose: 325 mg Documented by: Atorvastatin Calcium (Atorvastatin 40 Mg Tab) 80 mg PO BEDTIME [facility] Last Admin: 08/11/20 19:18 Dose: 80 mg Documented by: Lisinopril (Lisinopril 20 Mg Tab) 20 mg PO DAILY [facility] Last Admin: 08/12/20 08:00 Dose: 20 mg Documented by: Magnesium Hydroxide (Magnesium Hydroxide 400 Mg/5 Ml Susp 30 Ml Cup) 30 ml PO DAILY PRN PRN Reason: Constipation Last Admin: 08/11/20 14:30 Dose: 30 ml Documented by: Meloxicam (Meloxicam 15 Mg Tab) 15 mg PO DAILY [facility] Last Admin: 08/12/20 08:01 Dose: 15 mg Documented by: Metoprolol Succinate (Metoprolol Succinate 25 Mg Tab.Er) 25 mg PO Q12HR [facility] Last Admin: 08/12/20 08:00 Dose: 25 mg Documented by: Nicotine (Nicotine 21 Mg/24 Hr Patch) 21 mg TRDERM BEDTIME [facility] Last Admin: 08/11/20 19:18 Dose: Not Given Documented by: Quetiapine Fumarate (Quetiapine 100 Mg Tab) 50 mg PO DAILY@2300 [facility] Last Admin: 08/11/20 23:00 Dose: 50 mg Documented by: Sodium Chloride (Sodium Chloride 0.9% 10 Ml Syringe) 10 ml FLUSH ASDIRECTED PRN PRN Reason: other Last Admin: 08/11/20 23:01 Dose: 10 ml Documented by: Discontinued Medications Alprazolam (Alprazolam 0.25 Mg Tab) 0.5 mg PO BEDTIME [facility] Last Admin: 08/10/20 20:47 Dose: Not Given Documented by: Alprazolam (Alprazolam 0.25 Mg Tab) 0.5 mg PO ONETIME ONE Stop: 08/10/20 03:24 Last Admin: 08/10/20 03:32 Dose: 0.5 mg Documented by: Enoxaparin Sodium (Enoxaparin 40 Mg/0.4 Ml Syringe) 40 mg SUBCUT Q24H [facility] Last Admin: 08/10/20 18:10 Dose: Not Given Documented by: Enoxaparin Sodium (Enoxaparin 40 Mg/0.4 Ml Syringe) 40 mg SUBCUT Q24H [facility] Last Admin: 08/10/20 19:28 Dose: 40 mg Documented by: Methylprednisolone Sodium Succinate (Methylprednisolone Sodium Succinate 125 Mg/2 Ml Sdv) 125 mg IVPUSH ONETIME ONE Stop: 08/10/20 01:53 Last Admin: 08/10/20 03:02 Dose: 125 mg Documented by: Methylprednisolone Sodium Succinate (Methylprednisolone Sodium Succinate 125 Mg/2 Ml Sdv) 125 mg IVPUSH ONETIME ONE Stop: 08/10/20 21:15 Last Admin: 08/10/20 21:30 Dose: 125 mg Documented by: Metoprolol Succinate (Metoprolol Succinate 25 Mg Tab.Er) 25 mg PO BID [facility] Last Admin: 08/10/20 07:56 Dose: 25 mg Documented by: Nicotine (Nicotine 21 Mg/24 Hr Patch) 21 mg TRDERM DAILY [facility] Last Admin: 08/10/20 18:07 Dose: Not Given Documented by: Quetiapine Fumarate (Quetiapine 100 Mg Tab) 50 mg PO BEDTIME [facility] Last Admin: 08/10/20 20:47 Dose: Not Given Documented by: Quetiapine Fumarate (Quetiapine 100 Mg Tab) 50 mg PO ONETIME [facility] Stop: 08/10/20 03:22 Last Admin: 08/10/20 03:32 Dose: 50 mg Documented by: Quetiapine Fumarate (Quetiapine 100 Mg Tab) 50 mg PO BEDTIME [facility] - Exam General: Alert, Oriented, Cooperative, No Acute Distress HEENT: Pupils Equal, Pupils Reactive, EOMI, Mucous Membr. Moist/[place] Neck: Supple Lungs: Normal Respiratory Effort, Wheezing (minimal wheezing bilaterally). No: Crackles, Rales, Rhonchi, Rub, Stridor Cardiovascular: Regular Rate, Regular Rhythm, No Murmurs GI/Abdominal Exam: Normal Bowel Sounds, Soft, Non-Tender, Other (obese) (Male) Exam: Deferred Back Exam: No: CVA Tenderness (L), CVA Tenderness (R), Muscle Spasm, Paraspinal Tenderness, Vertebral Tenderness Extremities: Non-Tender, No Pedal Edema, Normal Capillary Refill Skin: Warm, Dry Neurological: No New Focal Deficit Psy/Mental Status: Alert, Normal Affect, Normal Mood - Patient Data Result Diagrams: 08/11/20 07:28 08/11/20 07:28 Sepsis Event Note - Evaluation Sepsis Screening Result: No Definite Risk - Focused Exam Vital Signs: Vital Signs Temp Pulse Pulse Resp BP BP Pulse Ox 08/12/20 08:00 72 126/67 08/12/20 07:22 36.1 C 72 14 126/67 92 L - Problem List & Annotations (1) COPD (chronic obstructive pulmonary disease) SNOMED Code(s): 93492362 Code(s): J44.9 - CHRONIC OBSTRUCTIVE PULMONARY DISEASE, UNSPECIFIED Status: Chronic Priority: High Current Visit: Yes Qualifiers: COPD type: emphysema Emphysema type: panlobular Qualified Code(s): J43.1 - Panlobular emphysema Annotation/Comment:: Significant wheezing noted/not able to move a lot of air during ER evaluation. Patient said he was at his normal "baseline" and did not feel that his COPD was contributing to his falls/weakness/dizziness. No recent history of fever bronchitic type symptoms. No handheld inhaler or nebulizer therapy. Note additional history of sleep apnea with CPAP noncompliance. Initiated DuoNeb treatments and gave Solu-medrol to assess for improvement of COPD symptoms. Significantly improved lung sounds today. Patient feels that breathing is improved. (2) Recurrent falls SNOMED Code(s): 333144216 Code(s): R29.6 - REPEATED FALLS Status: Acute Priority: High Current Visit: Yes Annotation/Comment:: Long history of frequent falls. Somewhat worse. Poor balance/equilibrium that is progressing. COPD/poor oxygenation with ambulation initially thought may be contributing factor. No improvement in strength/ambulation noted however when COPD symptoms improved. (3) Generalized weakness SNOMED Code(s): 68640582 Code(s): R53.1 - WEAKNESS Status: Chronic Priority: High Current Visit: Yes Annotation/Comment:: Chronic weakness/deconditioning. Needs help getting off floor when he falls. Is not able to care for self/transfer self at home. Family says it has reached a point where they are unable to provide the care that the patient requires for normal ADLs. (4) Osteoarthritis SNOMED Code(s): 833551880 Code(s): M19.90 - UNSPECIFIED OSTEOARTHRITIS, UNSPECIFIED SITE Status: Chronic Priority: Medium Current Visit: No Qualifiers: Osteoarthritis location: multiple joints Osteoarthritis type: primary Qualified Code(s): M89.49 - Other hypertrophic osteoarthropathy, multiple sites Annotation/Comment:: Otherwise stable by history with no other injuries or complaints. (5) Tobacco abuse disorder SNOMED Code(s): 496182527 Code(s): Z72.0 - TOBACCO USE Status: Chronic Priority: Medium Current Visit: No Annotation/Comment:: Tobacco cessation for the patient strongly encouraged, however he does not appear interested in this at time. (6) Coronary artery disease SNOMED Code(s): 06800890 Code(s): I25.10 - ATHSCL HEART DISEASE OF [place] CORONARY ARTERY W/O ANG PCTRS Status: Chronic Priority: Medium Current Visit: No Annotation/Comment:: No recent chest pain or anginal complaints (7) Hypertension SNOMED Code(s): 75671701 Code(s): I10 - ESSENTIAL (PRIMARY) HYPERTENSION Status: Chronic Priority: Medium Current Visit: No Qualifiers: Hypertension type: essential hypertension Qualified Code(s): I10 - Essential (primary) hypertension Annotation/Comment:: Stable in the emergency room. 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 Stable neurological status by patient history with current disability. - Problem List Review Problem List Initiated/Reviewed/Updated: Yes - My Orders Last 24 Hours: My Active Orders 08/12/20 10:40 Mini Mental Status Exam MMSE [RC] . DIRECTED 08/12/20 12:46 OCCULT BLOOD DIAGNOSTIC [OP] Routine 08/13/20 05:11 COMPREHENSIVE METABOLIC PN,CMP [CHEM] AM 08/13/20 05:15 CBC WITH AUTO DIFF [HEME] AM - Assessment Assessment:: as above. Patient changed to full inpatient admission due to suspicion of COPD contributing to his symptoms and continued weakness/questionable safety at home. - Plan Plan:: As above. Continue nebs. Patient's COPD has improved. Strength/balance remain poor. PT/OT did work with patient and are familiar with him from previous encounters. They feel that he is at his baseline and is not safe at home. Patient's is unable to care for him at home safely given their advanced age and patient's increasingly poor mobility/strength and increased falls. She also reports behavioral difficulties with patient and his refusal to do self cares, such as bathe/refusal to accept assistance. Case management is working on group home placement today. Anticipate patient may be discharged to group home tomorrow once placement has been finalized.
[2020-08-12] MEDS: atorvaSTATin 40 MG Tab PO SCH (19:20)
[2020-08-12] MEDS: Aspirin 325 MG Tab PO SCH (19:20)
[2020-08-12] MEDS: Nicotine 21 MG/24 Hr Patch TRDERM SCH (19:21)
[2020-08-12] MEDS: QUEtiapine 100 MG Tab PO SCH (23:02)
[2020-08-12] MEDS: ALPRAZolam 0.25 MG Tab PO SCH (23:03)
[2020-08-12] MEDS: Sodium Chloride 0.9% 10 ML Syringe FLUSH PRN (23:04)
[2020-08-13] MEDS: Albuterol/Ipratropium 3.0-0.5 MG/3 ML Neb Soln NEB SCH ×3 (01:58→19:32)
[2020-08-13 07:39] LABS: CHLORIDE,CL 105 mmol/L (98-107); SODIUM,NA 139 mmol/L (136-145)
[2020-08-13] MEDS: Lisinopril 20 MG Tab PO SCH (07:42)
[2020-08-13] MEDS: Metoprolol Succinate 25 MG Tab.ER PO SCH ×2 (07:42→19:33)
--- NOTE | 2020-08-13 12:38 | PCM.PN ---
- General Info Date of Service: 08/13/20 Admission Dx/Problem (Free Text): Weakness/falls/dysequilibrium/COPD Subjective Update: Patient reports that his shortness of breath has improved on the nebs. No change in ability to ambulate/balance. No new complaints. Functional Status: Reports: Pain Controlled - Review of Systems General: Reports: Weakness (chronic) HEENT: Denies: Dysphasia, Ear Pain, Eye Pain, Headaches, Post Nasal Drip, Sinus Congestion, Sore Throat, Rhinitis, Visual Changes Pulmonary: Reports: Shortness of Breath (with activity), Cough (mild/chronic smoker's cough), Wheezing (much improved). Denies: Pleuritic Chest Pain, Sputum, Hemoptysis Cardiovascular: Reports: Dyspnea on Exertion (chronic). Denies: Chest Pain, Orthopnea, PND Gastrointestinal: Denies: Abdominal Pain, Decreased Appetite, Diarrhea, Difficulty Swallowing, Hematochezia, Nausea, Vomiting Genitourinary: Denies: Dysuria, Burning, Pain, Urgency, Hematuria, Retention, Flank Pain Musculoskeletal: Reports: Other (no acute changes from baseline) Skin: Reports: No Symptoms Neurological: Reports: Dizziness (chronic poor balance), Difficulty Walking (chronic/freqent falls), Weakness (chronic), Gait Disturbance (chronic). Denies: Confusion, Headache, Numbness, Paresthesia, Change in Speech Psychiatric: Reports: No Symptoms (at this time. Staff has noticed some confusion at night) - Patient Data Vitals - Most Recent: Last Vital Signs Temp 36.9 C 08/13/20 09:00 Pulse 71 08/13/20 09:00 Resp 16 08/13/20 09:00 BP 128/60 08/13/20 09:00 Pulse Ox 93 L 08/13/20 09:00 Weight - Most Recent: 99.79 kg I&O - Last 24 Hours: Intake & Output 08/12/20 08/13/20 08/13/20 22:59 06:59 14:59 Intake Total 360 300 360 Output Total 1025 Balance 360 -725 360 Lab Results Last 24 Hours: Laboratory Results - last 24 hr 08/13/20 08/13/20 Range/Units 07:03 07:03 WBC 5.8 (4.0-10.2) K/uL RBC 3.92 L (4.33-5.41) M/uL Hgb 13.4 (13.1-16.8) g/dL Hct 39.1 (39.0-49.0) % MCV 99.7 H (84.0-98.0) fL MCH 34.2 H (28.2-33.3) pg MCHC 34.3 (31.7-36.0) g/dL RDW 12.8 (11.2-14.1) % Plt Count 202 (150-350) K/uL Neut % (Auto) 58.3 (45.0-80.0) % Lymph % (Auto) 25.9 (10.0-50.0) % [place] % (Auto) 12.0 (2.0-14.0) % Eos % (Auto) 3.6 (0.0-5.0) % Baso % (Auto) 0.2 (0.0-2.0) % Neut # (Auto) 3.41 (1.40-7.00) K/uL Lymph # (Auto) 1.51 (0.50-3.50) K/uL [place] # (Auto) 0.70 (0.00-1.00) K/uL Eos # (Auto) 0.21 (0.00-0.50) K/uL Baso # (Auto) 0.01 (0.00-0.20) K/uL Sodium 139 (136-145) mmol/L Potassium 4.1 (3.5-5.1) mmol/L Chloride 105 (98-107) mmol/L Carbon Dioxide 25.9 (21.0-32.0) mmol/L BUN 17 (7-18) mg/dL Creatinine 0.80 (0.51-1.17) mg/dL Est Cr Clr Drug Dosing 84.91 mL/min Estimated GFR (MDRD) > 60 mL/min Glucose 87 (70-99) mg/dL Calcium 7.9 L (8.5-10.1) mg/dL Total Bilirubin 0.5 (0.2-1.0) mg/dL AST 31 (15-37) U/L ALT 56 (12-78) U/L Alkaline Phosphatase 82 (46-116) IU/L Total Protein 5.9 L (6.4-8.2) g/dL Albumin 2.9 L (3.4-5.0) g/dL Med Orders - Current: Current Medications Albuterol/Ipratropium (Albuterol/Ipratropium 3.0-0.5 Mg/3 Ml Neb Soln) 3 ml NEB Q6HRRT [facility] Last Admin: 08/13/20 07:42 Dose: 3 ml Documented by: Alprazolam (Alprazolam 0.25 Mg Tab) 0.5 mg PO DAILY@2300 [facility] Last Admin: 08/12/20 23:03 Dose: 0.5 mg Documented by: Aspirin (Aspirin 325 Mg Tab) 325 mg PO BEDTIME [facility] Last Admin: 08/12/20 19:20 Dose: 325 mg Documented by: Atorvastatin Calcium (Atorvastatin 40 Mg Tab) 80 mg PO BEDTIME [facility] Last Admin: 08/12/20 19:20 Dose: 80 mg Documented by: Lisinopril (Lisinopril 20 Mg Tab) 20 mg PO DAILY [facility] Last Admin: 08/13/20 07:42 Dose: 20 mg Documented by: Magnesium Hydroxide (Magnesium Hydroxide 400 Mg/5 Ml Susp 30 Ml Cup) 30 ml PO DAILY PRN PRN Reason: Constipation Last Admin: 08/11/20 14:30 Dose: 30 ml Documented by: Meloxicam (Meloxicam 15 Mg Tab) 15 mg PO DAILY [facility] Last Admin: 08/13/20 07:42 Dose: 15 mg Documented by: Metoprolol Succinate (Metoprolol Succinate 25 Mg Tab.Er) 25 mg PO Q12HR [facility] Last Admin: 08/13/20 07:42 Dose: 25 mg Documented by: Nicotine (Nicotine 21 Mg/24 Hr Patch) 21 mg TRDERM BEDTIME [facility] Last Admin: 08/12/20 19:21 Dose: Not Given Documented by: Quetiapine Fumarate (Quetiapine 100 Mg Tab) 50 mg PO DAILY@2300 [facility] Last Admin: 08/12/20 23:02 Dose: 50 mg Documented by: Sodium Chloride (Sodium Chloride 0.9% 10 Ml Syringe) 10 ml FLUSH ASDIRECTED PRN PRN Reason: other Last Admin: 08/12/20 23:04 Dose: 10 ml Documented by: Discontinued Medications Alprazolam (Alprazolam 0.25 Mg Tab) 0.5 mg PO BEDTIME [facility] Last Admin: 08/10/20 20:47 Dose: Not Given Documented by: Alprazolam (Alprazolam 0.25 Mg Tab) 0.5 mg PO ONETIME ONE Stop: 08/10/20 03:24 Last Admin: 08/10/20 03:32 Dose: 0.5 mg Documented by: Enoxaparin Sodium (Enoxaparin 40 Mg/0.4 Ml Syringe) 40 mg SUBCUT Q24H [facility] Last Admin: 08/10/20 18:10 Dose: Not Given Documented by: Enoxaparin Sodium (Enoxaparin 40 Mg/0.4 Ml Syringe) 40 mg SUBCUT Q24H [facility] Last Admin: 08/10/20 19:28 Dose: 40 mg Documented by: Methylprednisolone Sodium Succinate (Methylprednisolone Sodium Succinate 125 Mg/2 Ml Sdv) 125 mg IVPUSH ONETIME ONE Stop: 08/10/20 01:53 Last Admin: 08/10/20 03:02 Dose: 125 mg Documented by: Methylprednisolone Sodium Succinate (Methylprednisolone Sodium Succinate 125 Mg/2 Ml Sdv) 125 mg IVPUSH ONETIME ONE Stop: 08/10/20 21:15 Last Admin: 08/10/20 21:30 Dose: 125 mg Documented by: Metoprolol Succinate (Metoprolol Succinate 25 Mg Tab.Er) 25 mg PO BID [facility] Last Admin: 08/10/20 07:56 Dose: 25 mg Documented by: Nicotine (Nicotine 21 Mg/24 Hr Patch) 21 mg TRDERM DAILY [facility] Last Admin: 08/10/20 18:07 Dose: Not Given Documented by: Quetiapine Fumarate (Quetiapine 100 Mg Tab) 50 mg PO BEDTIME [facility] Last Admin: 08/10/20 20:47 Dose: Not Given Documented by: Quetiapine Fumarate (Quetiapine 100 Mg Tab) 50 mg PO ONETIME [facility] Stop: 08/10/20 03:22 Last Admin: 08/10/20 03:32 Dose: 50 mg Documented by: Quetiapine Fumarate (Quetiapine 100 Mg Tab) 50 mg PO BEDTIME [facility] - Exam General: Alert, Oriented, Cooperative, No Acute Distress HEENT: Pupils Equal, Pupils Reactive, EOMI Neck: Supple Lungs: Normal Respiratory Effort, Wheezing (mild). No: Crackles, Rales, Rhonchi, Rub, Stridor Cardiovascular: Regular Rate, Regular Rhythm GI/Abdominal Exam: Soft, Non-Tender (Male) Exam: Deferred Back Exam: No: CVA Tenderness (L), CVA Tenderness (R), Muscle Spasm Extremities: Non-Tender, Normal Capillary Refill Skin: Warm, Dry Neurological: No New Focal Deficit Psy/Mental Status: Alert, Normal Affect, Normal Mood - Patient Data Lab Results Last 24 hrs: Laboratory Results - last 24 hr 08/13/20 08/13/20 Range/Units 07:03 07:03 WBC 5.8 (4.0-10.2) K/uL RBC 3.92 L (4.33-5.41) M/uL Hgb 13.4 (13.1-16.8) g/dL Hct 39.1 (39.0-49.0) % MCV 99.7 H (84.0-98.0) fL MCH 34.2 H (28.2-33.3) pg MCHC 34.3 (31.7-36.0) g/dL RDW 12.8 (11.2-14.1) % Plt Count 202 (150-350) K/uL Neut % (Auto) 58.3 (45.0-80.0) % Lymph % (Auto) 25.9 (10.0-50.0) % [place] % (Auto) 12.0 (2.0-14.0) % Eos % (Auto) 3.6 (0.0-5.0) % Baso % (Auto) 0.2 (0.0-2.0) % Neut # (Auto) 3.41 (1.40-7.00) K/uL Lymph # (Auto) 1.51 (0.50-3.50) K/uL [place] # (Auto) 0.70 (0.00-1.00) K/uL Eos # (Auto) 0.21 (0.00-0.50) K/uL Baso # (Auto) 0.01 (0.00-0.20) K/uL Sodium 139 (136-145) mmol/L Potassium 4.1 (3.5-5.1) mmol/L Chloride 105 (98-107) mmol/L Carbon Dioxide 25.9 (21.0-32.0) mmol/L BUN 17 (7-18) mg/dL Creatinine 0.80 (0.51-1.17) mg/dL Est Cr Clr Drug Dosing 84.91 mL/min Estimated GFR (MDRD) > 60 mL/min Glucose 87 (70-99) mg/dL Calcium 7.9 L (8.5-10.1) mg/dL Total Bilirubin 0.5 (0.2-1.0) mg/dL AST 31 (15-37) U/L ALT 56 (12-78) U/L Alkaline Phosphatase 82 (46-116) IU/L Total Protein 5.9 L (6.4-8.2) g/dL Albumin 2.9 L (3.4-5.0) g/dL Result Diagrams: 08/13/20 07:03 08/13/20 07:03 Sepsis Event Note - Evaluation Sepsis Screening Result: No Definite Risk - Focused Exam Vital Signs: Vital Signs Temp Pulse Pulse Resp BP BP Pulse Ox 08/13/20 09:00 36.9 C 71 16 128/60 93 L 08/13/20 07:42 71 128/60 - Problem List & Annotations (1) COPD (chronic obstructive pulmonary disease) SNOMED Code(s): 81224244 Code(s): J44.9 - CHRONIC OBSTRUCTIVE PULMONARY DISEASE, UNSPECIFIED Status: Chronic Priority: High Current Visit: Yes Qualifiers: COPD type: emphysema Emphysema type: panlobular Qualified Code(s): J43.1 - Panlobular emphysema Annotation/Comment:: Significant wheezing noted/not able to move a lot of air during ER evaluation. Patient said he was at his normal "baseline" and did not feel that his COPD was contributing to his falls/weakness/dizziness. No recent history of fever bronchitic type symptoms. No handheld inhaler or nebulizer therapy. Note additional history of sleep apnea with CPAP noncompliance. Initiated DuoNeb treatments and gave Solu-medrol to assess for improvement of COPD symptoms. Significantly improved lung sounds today. Patient feels that breathing is improved. Will need to be continued on scheduled BID nebs at time of discharge. (2) Recurrent falls SNOMED Code(s): 751266530 Code(s): R29.6 - REPEATED FALLS Status: Chronic Priority: High Current Visit: Yes Annotation/Comment:: Long history of frequent falls. Somewhat worse. Poor balance/equilibrium that is progressing. PT/OT note that patient is likely at baseline. They are familiar with patient from previous visits/care home stays. COPD/poor oxygenation with ambulation initially thought may be contributing factor. No improvement in strength/ambulation noted however when COPD symptoms improved. (3) Generalized weakness SNOMED Code(s): 45904878 Code(s): R53.1 - WEAKNESS Status: Chronic Priority: High Current Visit: Yes Annotation/Comment:: Chronic weakness/deconditioning. Needs help getting off floor when he falls. Is not able to care for self/transfer self at home. Family says it has reached a point where they are unable to provide the care that the patient requires for normal ADLs. (4) Osteoarthritis SNOMED Code(s): 699353218 Code(s): M19.90 - UNSPECIFIED OSTEOARTHRITIS, UNSPECIFIED SITE Status: ron Priority: Medium Current Visit: No Qualifiers: Osteoarthritis location: multiple joints Osteoarthritis type: primary Qualified Code(s): M89.49 - Other hypertrophic osteoarthropathy, multiple sites Annotation/Comment:: Otherwise stable by history with no other injuries or complaints. (5) Tobacco abuse disorder SNOMED Code(s): 158096593 Code(s): Z72.0 - TOBACCO USE Status: Chronic Priority: Medium Current Visit: No Annotation/Comment:: Tobacco cessation for the patient strongly encouraged, however he does not appear interested in this at time. (6) Coronary artery disease SNOMED Code(s): 28180652 Code(s): I25.10 - ATHSCL HEART DISEASE OF [place] CORONARY ARTERY W/O ANG PCT RS Status: Chronic Priority: Medium Current Visit: No Annotation/Comment:: No recent chest pain or anginal complaints (7) Hypertension SNOMED Code(s): 00731558 Code(s): I10 - ESSENTIAL (PRIMARY) HYPERTENSION Status: Chronic Priority: Medium Current Visit: No Qualifiers: Hypertension type: essential hypertension Qualified Code(s): I10 - Essential (primary) hypertension Annotation/Comment:: Stable in the emergency room. 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 Stable neurological status by patient history with current disability. - Problem List Review Problem List Initiated/Reviewed/Updated: Yes - My Orders Last 24 Hours: My Active Orders 08/12/20 12:46 OCCULT BLOOD DIAGNOSTIC [OP] Routine 08/12/20 15:42 Chest 1V Frontal [CR] Routine 08/13/20 08:00 Vital Signs [RC] 08,20 - Assessment Assessment:: as above. Patient changed to full inpatient admission due to suspicion of COPD contributing to his symptoms and continued weakness/questionable safety at home. - Plan Plan:: As above. Continue nebs. Patient will need to be continued on scheduled nebs at time of discharge. Patient's COPD has improved. Strength/balance remain poor. PT/OT did work with patient and are familiar with him from previous encounters. They feel that he is at his baseline and is not safe at home. Patient's is unable to care for him at home safely given their advanced age and patient's increasingly poor mobility/strength and increased falls. She also reports behavioral difficulties with patient and his refusal to do self cares, such as bathe/refusal to accept assistance. Case management is working on care home placement and it appears that patient will likely be able to be discharged tomorrow to [place]. Additional day of inpatient stay while waiting for finalization of planning of admission to their facility/transfer arrangements.
[2020-08-13] MEDS ORDERED: Albuterol/Ipratropium 3.0-0.5 MG/3 ML Neb Soln NEB PRN (19:00)
[2020-08-13] MEDS: Aspirin 325 MG Tab PO SCH (19:32)
[2020-08-13] MEDS: atorvaSTATin 40 MG Tab PO SCH (19:33)
[2020-08-13] MEDS: Nicotine 21 MG/24 Hr Patch TRDERM SCH (19:33)
[2020-08-13] MEDS ORDERED: Budesonide 0.5 MG/2 ML Neb Susp NEB ONE (23:00)
[2020-08-13] MEDS ORDERED: Oxybutynin 5 MG Tab PO ONE (23:00)
[2020-08-13] MEDS: ALPRAZolam 0.25 MG Tab PO SCH (23:08)
[2020-08-13] MEDS: QUEtiapine 100 MG Tab PO SCH (23:09)
[2020-08-14] MEDS ORDERED: Ondansetron 4 MG/2 ML SDV IVPUSH ONE (07:51)
[2020-08-14] MEDS: Sodium Chloride 0.9% 10 ML Syringe FLUSH PRN (07:58)
[2020-08-14] MEDS ORDERED: Budesonide 0.5 MG/2 ML Neb Susp NEB SCH (08:00)
[2020-08-14] MEDS ORDERED: Oxybutynin 5 MG Tab PO SCH (08:00)
--- NOTE | 2020-08-14 09:27 | PCM.DCSUM1 ---
Discharge Summary - Hospital Course HPI Initial Comments: See emergency room note/mention H&P Brief History: See emergency room note/mention H&P Diagnosis: Stroke: No Modified [place] Scale: No Symptoms at All Modified [place] Scale Score: 0 - Discharge Data Discharge Date: 08/14/20 Discharge Disposition: DC/Tfer to [facility] Condition: Fair - Referral to Home Health Primary Care Physician: JUANITA Lee - Discharge Diagnosis/Problem(s) (1) Generalized weakness SNOMED Code(s): 08526043 ICD Code: R53.1 - WEAKNESS Status: Chronic Priority: High Current Visit: Yes Problem Details: Chronic weakness/deconditioning with history of recurrent falls and the patient no longer able to be taken care of at home. The patient and the family do agree to long-term placement and admission to [facility] later today. PT and OT were conducted during this hospitalization and will be continued in the long-term. Patient is no longer able to perform ADLs on his own. (2) Hydrocephalus SNOMED Code(s): 543059727 ICD Code: G91.9 - HYDROCEPHALUS, UNSPECIFIED Status: Chronic Priority: Medium Current Visit: Yes Problem Details: Traumatic brain injury 1967 as per emergency room note. Note secondary mental deficits, which were stable prior to admission and throughout this hospitalization. Qualifiers: Hydrocephalus type: post-traumatic Qualified Code(s): G91.3 - Post- traumatic hydrocephalus, unspecified (3) COPD (chronic obstructive pulmonary disease) SNOMED Code(s): 22967343 ICD Code: J44.9 - CHRONIC OBSTRUCTIVE PULMONARY DISEASE, UNSPECIFIED Status: Chronic Priority: High Current Visit: Yes Problem Details: Note additional history of sleep apnea with CPAP noncompliance. Initiated DuoNeb treatments and gave Solu-medrol to assess for improvement of COPD symptoms, which did significantly improve during this hospitalization. No previous history of tobacco use with the patient not able to smoke at [facility]. He does not wish to have a nicotine patch. Borderline pneumonia by chest x-ray on admission as below with close follow-up by regular provider as per discharge instructions. No fever, leukocytosis, etc. with antibiotic therapy not indicated at this time. Note resolution of leukocytosis on admission with no evidence of UTI, although urine specimen was not sent for culture and sensitivity. No UTI symptoms at this time. Qualifiers: COPD type: emphysema Emphysema type: panlobular Qualified Code(s): J43.1 - Panlobular emphysema (4) Mixed anxiety and depressive disorder SNOMED Code(s): 330646241 ICD Code: F41.8 - OTHER SPECIFIED ANXIETY DISORDERS Status: Chronic Priority: Medium Current Visit: Yes Problem Details: Somewhat persistent anxious and depressed affect during this hospitalization. Continue to observe closely by regular provider. Some nonspecific emesis this morning x2 with no abdominal pain, current nausea, etc. Observe for now. Note that patient was started on oxybutynin yesterday evening with this medication to be discontinued for now, however no significant allergic reaction to this medication. Anxious component secondary to long-term placement? (5) Hypoalbuminemia SNOMED Code(s): 897175190 ICD Code: E88.09 - OTH DISORDERS OF PLASMA-PROTEIN METABOLISM, NEC Status: Acute Priority: Medium Current Visit: Yes Onset Date: 08/11/20 Problem Details: Observe for now. Note follow-up blood work as per discharge instructions. (6) Hypocalcemia SNOMED Code(s): 2357119 ICD Code: E83.51 - HYPOCALCEMIA Status: Chronic Priority: Medium Current Visit: Yes Onset Date: 08/11/20 Problem Details: Observe for now. Follow-up labs as above. (7) Hyperlipidemia SNOMED Code(s): 77446405 ICD Code: E78.5 - HYPERLIPIDEMIA, UNSPECIFIED Status: Chronic Priority: Medium Current Visit: Yes Problem Details: Currently under therapy Qualifiers: Hyperlipidemia type: mixed hyperlipidemia Qualified Code(s): E78.2 - Mixed hyperlipidemia (8) Coronary artery disease SNOMED Code(s): 51531324 ICD Code: I25.10 - ATHSCL HEART DISEASE OF [place] CORONARY ARTERY W/O ANG PCTRS Status: Chronic Priority: Medium Current Visit: Yes Problem Details: No recent chest pain or anginal complaints prior to admission or during this hospitalization. No evidence of CHF despite mild hyponatremia, which did resolve prior to discharge. Qualifiers: Coronary Disease-Associated Artery/Lesion type: [place] artery [place] vs. transplanted heart: [place] heart Associated angina: without angina Qualified Code(s): I25.10 - Atherosclerotic heart disease of [place] coronary artery without angina pectoris (9) Hypertension SNOMED Code(s): 61023430 ICD Code: I10 - ESSENTIAL (PRIMARY) HYPERTENSION Status: Chronic Priority: Medium Current Visit: Yes Problem Details: Stable in the emergency room and during this hospitalization. Qualifiers: Hypertension type: essential hypertension Qualified Code(s): I10 - Es sential (primary) hypertension (10) Osteoarthritis SNOMED Code(s): 834165377 ICD Code: M19.90 - UNSPECIFIED OSTEOARTHRITIS, UNSPECIFIED SITE Status: Chronic Priority: Medium Current Visit: Yes Problem Details: Otherwise st able by history and during this hospitalization with no other injuries or complaints. Qualifiers: Osteoarthritis location: multiple joints Osteoarthritis type: primary Qualified Code(s): M89.49 - Other hypertrophic osteoarthropathy, multiple sites (11) Tobacco abuse disorder SNOMED Code(s): 701590176 ICD Code: Z72.0 - TOBACCO USE Status: Chronic Priority: Medium Current Visit: Yes Problem Details: As above (12) Hyponatremia SNOMED Code(s): 49051846 ICD Code: E87.1 - HYPO-OSMOLALITY AND HYPONATREMIA Status: Acute Priority: Medium Current Visit: Yes Onset Date: 08/10/20 Problem Details: As above - Patient Summary/Data Operative Procedure(s) Performed: None Complications: None Consults: Consultations 08/10/20 15:55 Consult to Case Management/Secretary Book Keeper [CONS] Routine OT Evaluation and Treatment [CONS] Routine PT Evaluation and Treatment [CONS] Routine Labs Pending at D/C: None Recommended Follow-up Testing/Procedures: As per discharge instructions Planned Operative Procedure(s) after DC: None Hospital Course: The patient was admitted to inpatient/acute care secondary to progressive weakness and inability to perform ADLs as above. PT and OT were ordered with slow improvement of his symptoms. Otherwise multiple health issues as above with medication adjustments during this hospitalization. No evidence of acute RI or anginal type symptoms. Patient COPD did respond well to nebulizer therapy and IV Solu-Medrol. Various therapeutic options were discussed with the patient and his family with all parties electing to admit the patient and to [facility]. Note some extended hospitalization required until this could be arranged. Otherwise no complications during this hospitalization. No te negative COVID-19 both on admission and at time of discharge. - Patient Instructions Diet: Heart Healthy Diet Diet, Other: Diverticulosis Activity: As Tolerated (And directed by PT and OT with strict fall precautions) Driving: Do Not Drive Showering/Bathing: May Shower (With assist) Notify Provider of: Fever, Increased Pain, Swelling and Redness, Nausea and/or Vomiting Other/Special Instructions: 1. Followup with your regular provider in 10-14 days as directed with recommended CBC, comprehensive metabolic panel, and chest x-ray. Bring these discharge instructions with you to that visit. 2. Admit to [facility] in [place]. 3. Initiate standard long-term orders. 4. PT and OT - Discharge Plan *PRESCRIPTION DRUG MONITORING PROGRAM REVIEWED*: Not Applicable *COPY OF PRESCRIPTION DRUG MONITORING REPORT IN PATIENT GAVIN: Not Applicable Prescriptions/Med Rec: ALPRAZolam [Alprazolam] 0.5 mg PO BEDTIME #7 tab Aspirin 325 mg PO QPM #7 tablet atorvaSTATin Calcium [Atorvastatin Calcium] 80 mg PO BEDTIME #7 tab Albuterol/Ipratropium [DuoNeb 3.0-0.5 MG/3 ML] 3 ml NEB Q12HR #60 neb Meloxicam 15 mg PO DAILY #7 Metoprolol Succinate 25 mg PO BID #14 lisinopriL [Prinivil] 20 mg PO DAILY #7 tablet Budesonide [Pulmicort] 0.5 mg NEB Q12HR #14 neb QUEtiapine Fumarate [Quetiapine Fumarate] 50 mg PO BEDTIME #7 tab Home Medications: Home Meds Calcium Carbonate/Vitamin D3 [Calcium 600 + Vit D 200] 1 each PO DAILY 09/23/17 [History] Lisinopril 20 mg PO DAILY 09/23/17 [History] Multivitamin [Multivitamins] 1 each PO DAILY 09/23/17 [History] ALPRAZolam [Alprazolam] 0.5 mg PO BEDTIME #7 tab 08/14/20 [Rx] Albuterol/Ipratropium [DuoNeb 3.0-0.5 MG/3 ML] 3 ml NEB Q12HR #60 neb 08/14/20 [Rx] Albuterol/Ipratropium [DuoNeb 3.0-0.5 MG/3 ML] 3 ml NEB Q4HRRT PRN neb 08/14/20 [Rx] Aspirin 325 mg PO QPM #7 tablet 08/14/20 [Rx] Budesonide [Pulmicort] 0.5 mg NEB Q12HR #14 neb 08/14/20 [Rx] Meloxicam 15 mg PO DAILY #7 08/14/20 [Rx] Metoprolol Succinate 25 mg PO BID #14 08/14/20 [Rx] QUEtiapine Fumarate [Quetiapine Fumarate] 50 mg PO BEDTIME #7 tab 08/14/20 [Rx] atorvaSTATin Calcium [Atorvastatin Calcium] 80 mg PO BEDTIME #7 tab 08/14/20 [Rx] lisinopriL [Prinivil] 20 mg PO DAILY #7 tablet 08/14/20 [Rx] Oxygen Therapy Mode: Room Air Forms: ED Department Discharge Referrals: Andrew Cardozo PA [Primary Care Provider] - - Discharge Summary/Plan Comment DC Time >30 min.: Yes (Coordination of care ) Discharge Summary/Plan Comment: As above. Extensive precautions were given to the patient, who is in agreement with the treatment plan. See Patient Instructions for further treatment and plan. - General Info Date of Service: 08/14/20 Admission Dx/Problem (Free Text: Weakness/falls/dysequilibrium/COPD Functional Status: Reports: Pain Controlled, Tolerating Diet, Ambulating, Urinating, New Symptoms (Unspecific emesis without nausea this morning as above), Incentive Spirometry Numeric/FACES Score: 0 - Review of Systems General: Reports: Weakness (Slowly improving). Denies: Fever, Fatigue, Malaise, Chills, Night Sweats, Appetite (Adequate) HEENT: Reports: Glasses. Denies: Dysphasia, Ear Pain, Eye Pain, Headaches, Post Nasal Drip, Sinus Congestion, Sore Throat, Rhinitis, Visual Changes Pulmonary: Reports: No Symptoms. Denies: Shortness of Breath, Pleuritic Chest Pain, Cough, Sputum, Hemoptysis, Wheezing Cardiovascular: Reports: No Symptoms. Denies: Chest Pain, Palpitations, Dyspnea on Exertion, Orthopnea, Edema, Lightheadedness Gastrointestinal: Reports: Abdominal Pain, Vomiting (Nonspecific as above). Denies: Constipation (Normal bowel movement yesterday), Decreased Appetite, Diarrhea, Flatus, Hematochezia, Melena, Nausea Genitourinary: Reports: No Symptoms. Denies: Dysuria, Frequency, Burning, Pain, Incontinence, Hematuria, Retention, Flank Pain Musculoskeletal: Reports: No Symptoms. Denies: Neck Pain, Shoulder Pain, Arm Pain, Back Pain, Leg Pain Skin: Reports: No Symptoms. Denies: Bruising Neurological: Reports: Confusion (Stable mental deficit), Difficulty Walking (Secondary to generalized weakness improving slowly), Weakness (Slowly improving). Denies: Dizziness, Headache, Paresthesia, Pre-Existing Deficit Psychiatric: Reports: Confusion (As above), Depression (Mild), Anxiety (Mild). Denies: Agitation, Cravings, Hallucinations - Patient Data Vitals - Most Recent: Last Vital Signs Temp 37.2 C 08/14/20 08:00 Pulse 98 08/14/20 08:00 Resp 20 08/14/20 08:00 BP 140/84 08/14/20 08:00 Pulse Ox 95 08/14/20 08:00 Vital Signs - 24 hr 08/13/20 08/13/20 08/14/20 19:31 19:33 08:00 Temperature [ 37.1 C 37.2 C Oral] Pulse, 81 Peripheral Pulse, 81 98 Peripheral [ Left Pulse Oximetry] Respiratory 24 H 20 Rate Blood Pressure 145/73 H Blood Pressure 145/73 H 140/84 [Left Upper Arm ] O2 Sat by Pulse 95 95 Oximetry 08/14/20 10:11 Temperature [ Oral] Pulse, 98 Peripheral Pulse, Peripheral [ Left Pulse Oximetry] Respiratory Rate Blood Pressure 140/84 Blood Pressure [Left Upper Arm ] O2 Sat by Pulse Oximetry Weight - Most Recent: 99.79 kg I&O - Last 24 hours: Intake & Output 08/13/20 08/14/20 08/14/20 22:59 06:59 14:59 Intake Total 800 300 Output Total 750 Balance 800 -450 Imaging Impressions - Last 24 hrs: Chest x-ray, portable, from 08/10/2020 showed somewhat decreased inspiratory film with questionable perihilar infiltrates but no direct consolidation, CHF, etc. EKG Date: 08/10/20 Time: 07:20 Rhythm: NSR Rate (Beats/Min): 83 [place]: Normal P-Wave: Present QRS: Normal ST-T: Normal QT: Normal Lab Results - Last 24 hrs: Laboratory Results - last 24 hr 08/14/20 Range/Units 07:07 SARS-CoV-2 RNA (VINH) Negative (NEGATIVE) Laboratory Tests 08/10/20 08/10/20 08/10/20 Range/Units 01:10 01:10 01:10 WBC 11.6 H (4.0-10.2) K/uL RBC 4.11 L (4.33-5.41) M/uL Hgb 14.1 (13.1-16.8) g/dL Hct 40.1 (39.0-49.0) % MCV 97.6 (84.0-98.0) fL MCH 34.3 H (28.2-33.3) pg MCHC 35.2 (31.7-36.0) g/dL RDW 12.0 (11.2-14.1) % Plt Count 226 (150-350) K/uL Neut % (Auto) 84.0 H (45.0-80.0) % Lymph % (Auto) 8.5 L (10.0-50.0) % [place] % (Auto) 7.4 (2.0-14.0) % Eos % (Auto) 0.0 (0.0-5.0) % Baso % (Auto) 0.1 (0.0-2.0) % Neut # (Auto) 9.71 H (1.40-7.00) K/uL Lymph # (Auto) 0.98 (0.50-3.50) K/uL [place] # (Auto) 0.85 (0.00-1.00) K/uL Eos # (Auto) 0.00 (0.00-0.50) K/uL Baso # (Auto) 0.01 (0.00-0.20) K/uL D-Dimer, Quantitative (0-400) ng/mL Sodium 134 L (136-145) mmol/L Potassium 4.5 (3.5-5.1) mmol/L Chloride 100 (98-107) mmol/L Carbon Dioxide 24.4 (21.0-32.0) mmol/L BUN 29 H (7-18) mg/dL Creatinine 0.84 (0.51-1.17) mg/dL Est Cr Clr Drug Dosing 80.87 mL/min Estimated GFR (MDRD) > 60 mL/min Glucose 131 H (70-99) mg/dL Lactic Acid 1.8 (0.4-2.0) mmol/L Calcium 9.2 (8.5-10.1) mg/dL Magnesium 2.0 (1.8-2.4) mg/dL Total Bilirubin 0.5 (0.2-1.0) mg/dL AST 24 (15-37) U/L ALT 41 (12-78) U/L Alkaline Phosphatase 98 (46-116) IU/L Troponin I (0.000-0.056) ng/mL NT-Pro-B Natriuret Pep 60 (0-125) pg/mL Total Protein 7.2 (6.4-8.2) g/dL Albumin 3.5 (3.4-5.0) g/dL Specimen Type Urine Color Urine Appearance Urine pH (5.0-9.0) Ur Specific [place] (1.005-1.030) Urine Protein (NEGATIVE) mg/dL Urine Glucose (UA) (NEGATIVE) mg/dL Urine Ketones (NEGATIVE) mg/dL Urine Occult Blood (NEGATIVE) Urine Nitrite (NEGATIVE) Urine Bilirubin (NEGATIVE) Urine Urobilinogen (0.2-1.0) E.U./dL Ur Leukocyte Esterase (NEGATIVE) Urine RBC /HPF Urine WBC /HPF Ur Epithelial Cells /LPF Urine Bacteria (NONE TO FEW) /HPF Urine Mucus (NEGATIVE) /LPF SARS-CoV-2 RNA (VINH) (NEGATIVE) 08/10/20 08/10/20 08/11/20 Range/Units 01:44 07:46 07:28 WBC 10.0 (4.0-10.2) K/uL RBC 3.58 L (4.33-5.41) M/uL Hgb 12.5 L D (13.1-16.8) g/dL Hct 35.1 L (39.0-49.0) % MCV 98.0 (84.0-98.0) fL MCH 34.9 H (28.2-33.3) pg MCHC 35.6 (31.7-36.0) g/dL RDW 12.2 (11.2-14.1) % Plt Count 209 (150-350) K/uL Neut % (Auto) 88.9 H (45.0-80.0) % Lymph % (Auto) 7.0 L (10.0-50.0) % [place] % (Auto) 4.1 (2.0-14.0) % Eos % (Auto) 0.0 (0.0-5.0) % Baso % (Auto) 0.0 (0.0-2.0) % Neut # (Auto) 8.86 H (1.40-7.00) K/uL Lymph # (Auto) 0.70 (0.50-3.50) K/uL [place] # (Auto) 0.41 (0.00-1.00) K/uL Eos # (Auto) 0.00 (0.00-0.50) K/uL Baso # (Auto) 0.00 (0.00-0.20) K/uL D-Dimer, Quantitative (0-400) ng/mL Sodium (136-145) mmol/L Potassium (3.5-5.1) mmol/L Chloride (98-107) mmol/L Carbon Dioxide (21.0-32.0) mmol/L BUN (7-18) mg/dL Creatinine (0.51-1.17) mg/dL Est Cr Clr Drug Dosing mL/min Estimated GFR (MDRD) mL/min Glucose (70-99) mg/dL Lactic Acid (0.4-2.0) mmol/L Calcium (8.5-10.1) mg/dL Magnesium (1.8-2.4) mg/dL Total Bilirubin (0.2-1.0) mg/dL AST (15-37) U/L ALT (12-78) U/L Alkaline Phosphatase (46-116) IU/L Troponin I (0.000-0.056) ng/mL NT-Pro-B Natriuret Pep (0-125) pg/mL Total Protein (6.4-8.2) g/dL Albumin (3.4-5.0) g/dL Specimen Type Urinvoid Urine Color Dark yellow Urine Appearance Clear Urine pH 6.0 (5.0-9.0) Ur Specific [place] >= 1.030 (1.005-1.030) Urine Protein Trace H (NEGATIVE) mg/dL Urine Glucose (UA) Negative (NEGATIVE) mg/dL Urine Ketones Negative (NEGATIVE) mg/dL Urine Occult Blood Negative (NEGATIVE) Urine Nitrite Negative (NEGATIVE) Urine Bilirubin Negative (NEGATIVE) Urine Urobilinogen 0.2 (0.2-1.0) E.U./dL Ur Leukocyte Esterase Negative (NEGATIVE) Urine RBC 5-10 H /HPF Urine WBC 0-5 /HPF Ur Epithelial Cells Rare /LPF Urine Bacteria Rare (NONE TO FEW) /HPF Urine Mucus Few H (NEGATIVE) /LPF SARS-CoV-2 RNA (VINH) Negative (NEGATIVE) 08/11/20 08/11/20 08/11/20 Range/Units 07:28 07:28 07:28 WBC (4.0-10.2) K/uL RBC (4.33-5.41) M/uL Hgb (13.1-16.8) g/dL Hct (39.0-49.0) % MCV (84.0-98.0) fL MCH (28.2-33.3) pg MCHC (31.7-36.0) g/dL RDW (11.2-14.1) % Plt Count (150-350) K/uL Neut % (Auto) (45.0-80.0) % Lymph % (Auto) (10.0-50.0) % [place] % (Auto) (2.0-14.0) % Eos % (Auto) (0.0-5.0) % Baso % (Auto) (0.0-2.0) % Neut # (Auto) (1.40-7.00) K/uL Lymph # (Auto) (0.50-3.50) K/uL [place] # (Auto) (0.00-1.00) K/uL Eos # (Auto) (0.00-0.50) K/uL Baso # (Auto) (0.00-0.20) K/uL D-Dimer, Quantitative 203 (0-400) ng/mL Sodium 134 L (136-145) mmol/L Potassium 4.6 (3.5-5.1) mmol/L Chloride 101 (98-107) mmol/L Carbon Dioxide 23.9 (21.0-32.0) mmol/L BUN 24 H (7-18) mg/dL Creatinine 0.77 (0.51-1.17) mg/dL Est Cr Clr Drug Dosing 88.22 mL/min Estimated GFR (MDRD) > 60 mL/min Glucose 160 H (70-99) mg/dL Lactic Acid 2.1 H (0.4-2.0) mmol/L Calcium 8.4 L (8.5-10.1) mg/dL Magnesium (1.8-2.4) mg/dL Total Bilirubin 0.5 (0.2-1.0) mg/dL AST 44 H (15-37) U/L ALT 41 (12-78) U/L Alkaline Phosphatase 75 (46-116) IU/L Troponin I 0.007 (0.000-0.056) ng/mL NT-Pro-B Natriuret Pep (0-125) pg/mL Total Protein 6.1 L (6.4-8.2) g/dL Albumin 2.9 L (3.4-5.0) g/dL Specimen Type Urine Color Urine Appearance Urine pH (5.0-9.0) Ur Specific [place] (1.005-1.030) Urine Protein (NEGATIVE) mg/dL Urine Glucose (UA) (NEGATIVE) mg/dL Urine Ketones (NEGATIVE) mg/dL Urine Occult Blood (NEGATIVE) Urine Nitrite (NEGATIVE) Urine Bilirubin (NEGATIVE) Urine Urobilinogen (0.2-1.0) E.U./dL Ur Leukocyte Esterase (NEGATIVE) Urine RBC /HPF Urine WBC /HPF Ur Epithelial Cells /LPF Urine Bacteria (NONE TO FEW) /HPF Urine Mucus (NEGATIVE) /LPF SARS-CoV-2 RNA (VINH) (NEGATIVE) 08/13/20 08/13/20 08/14/20 Range/Units 07:03 07:03 07:07 WBC 5.8 (4.0-10.2) K/uL RBC 3.92 L (4.33-5.41) M/uL Hgb 13.4 (13.1-16.8) g/dL Hct 39.1 (39.0-49.0) % MCV 99.7 H (84.0-98.0) fL MCH 34.2 H (28.2-33.3) pg MCHC 34.3 (31.7-36.0) g/dL RDW 12.8 (11.2-14.1) % Plt Count 202 (150-350) K/uL Neut % (Auto) 58.3 (45.0-80.0) % Lymph % (Auto) 25.9 (10.0-50.0) % [place] % (Auto) 12.0 (2.0-14.0) % Eos % (Auto) 3.6 (0.0-5.0) % Baso % (Auto) 0.2 (0.0-2.0) % Neut # (Auto) 3.41 (1.40-7.00) K/uL Lymph # (Auto) 1.51 (0.50-3.50) K/uL [place] # (Auto) 0.70 (0.00-1.00) K/uL Eos # (Auto) 0.21 (0.00-0.50) K/uL Baso # (Auto) 0.01 (0.00-0.20) K/uL D-Dimer, Quantitative (0-400) ng/mL Sodium 139 (136-145) mmol/L Potassium 4.1 (3.5-5.1) mmol/L Chloride 105 (98-107) mmol/L Carbon Dioxide 25.9 (21.0-32.0) mmol/L BUN 17 (7-18) mg/dL Creatinine 0.80 (0.51-1.17) mg/dL Est Cr Clr Drug Dosing 84.91 mL/min Estimated GFR (MDRD) > 60 mL/min Glucose 87 (70-99) mg/dL Lactic Acid (0.4-2.0) mmol/L Calcium 7.9 L (8.5-10.1) mg/dL Magnesium (1.8-2.4) mg/dL Total Bilirubin 0.5 (0.2-1.0) mg/dL AST 31 (15-37) U/L ALT 56 (12-78) U/L Alkaline Phosphatase 82 (46-116) IU/L Troponin I (0.000-0.056) ng/mL NT-Pro-B Natriuret Pep (0-125) pg/mL Total Protein 5.9 L (6.4-8.2) g/dL Albumin 2.9 L (3.4-5.0) g/dL Specimen Type Urine Color Urine Appearance Urine pH (5.0-9.0) Ur Specific [place] (1.005-1.030) Urine Protein (NEGATIVE) mg/dL Urine Glucose (UA) (NEGATIVE) mg/dL Urine Ketones (NEGATIVE) mg/dL Urine Occult Blood (NEGATIVE) Urine Nitrite (NEGATIVE) Urine Bilirubin (NEGATIVE) Urine Urobilinogen (0.2-1.0) E.U./dL Ur Leukocyte Esterase (NEGATIVE) Urine RBC /HPF Urine WBC /HPF Ur Epithelial Cells /LPF Urine Bacteria (NONE TO FEW) /HPF Urine Mucus (NEGATIVE) /LPF SARS-CoV-2 RNA (VINH) Negative (NEGATIVE) MACEY Results - Last 24 hrs: None Med Orders - Current: Current Medications Albuterol/Ipratropium (Albuterol/Ipratropium 3.0-0.5 Mg/3 Ml Neb Soln) 3 ml NEB Q12HR [facility] Last Admin: 08/13/20 19:32 Dose: 3 ml Documented by: Albuterol/Ipratropium (Albuterol/Ipratropium 3.0-0.5 Mg/3 Ml Neb Soln) 3 ml NEB Q4HRRT PRN PRN Reason: dyspnea/wheeze Alprazolam (Alprazolam 0.25 Mg Tab) 0.5 mg PO DAILY@2300 [facility] Last Admin: 08/13/20 23:08 Dose: 0.5 mg Documented by: Aspirin (Aspirin 325 Mg Tab) 325 mg PO BEDTIME [facility] Last Admin: 08/13/20 19:32 Dose: 325 mg Documented by: Atorvastatin Calcium (Atorvastatin 40 Mg Tab) 80 mg PO BEDTIME [facility] Last Admin: 08/13/20 19:33 Dose: 80 mg Documented by: Budesonide (Budesonide 0.5 Mg/2 Ml Neb Susp) 0.5 mg NEB Q12HR [facility] Lisinopril (Lisinopril 20 Mg Tab) 20 mg PO DAILY [facility] Last Admin: 08/13/20 07:42 Dose: 20 mg Documented by: Magnesium Hydroxide (Magnesium Hydroxide 400 Mg/5 Ml Susp 30 Ml Cup) 30 ml PO DAILY PRN PRN Reason: Constipation Last Admin: 08/11/20 14:30 Dose: 30 ml Documented by: Meloxicam (Meloxicam 15 Mg Tab) 15 mg PO DAILY [facility] Last Admin: 08/13/20 07:42 Dose: 15 mg Documented by: Metoprolol Succinate (Metoprolol Succinate 25 Mg Tab.Er) 25 mg PO Q12HR [facility] Last Admin: 08/13/20 19:33 Dose: 25 mg Documented by: Nicotine (Nicotine 21 Mg/24 Hr Patch) 21 mg TRDERM BEDTIME [facility] Last Admin: 08/13/20 19:33 Dose: Not Given Documented by: Oxybutynin Chloride (Oxybutynin 5 Mg Tab) 2.5 mg PO Q12HR [facility] Quetiapine Fumarate (Quetiapine 100 Mg Tab) 50 mg PO DAILY@2300 [facility] Last Admin: 08/13/20 23:09 Dose: 50 mg Documented by: Sodium Chloride (Sodium Chloride 0.9% 10 Ml Syringe) 10 ml FLUSH ASDIRECTED PRN PRN Reason: other Last Admin: 08/14/20 07:58 Dose: 10 ml Documented by: Discontinued Medications Albuterol/Ipratropium (Albuterol/Ipratropium 3.0-0.5 Mg/3 Ml Neb Soln) 3 ml NEB Q6HRRT [facility] Last Admin: 08/13/20 07:42 Dose: 3 ml Documented by: Alprazolam (Alprazolam 0.25 Mg Tab) 0.5 mg PO BEDTIME [facility] Last Admin: 08/10/20 20:47 Dose: Not Given Documented by: Alprazolam (Alprazolam 0.25 Mg Tab) 0.5 mg PO ONETIME ONE Stop: 08/10/20 03:24 Last Admin: 08/10/20 03:32 Dose: 0.5 mg Documented by: Budesonide (Budesonide 0.5 Mg/2 Ml Neb Susp) 0.5 mg NEB ONETIME ONE Stop: 08/13/20 23:01 Last Admin: 08/13/20 23:09 Dose: 0.5 mg Documented by: Enoxaparin Sodium (Enoxaparin 40 Mg/0.4 Ml Syringe) 40 mg SUBCUT Q24H [facility] Last Admin: 08/10/20 18:10 Dose: Not Given Documented by: Enoxaparin Sodium (Enoxaparin 40 Mg/0.4 Ml Syringe) 40 mg SUBCUT Q24H [facility] Last Admin: 08/10/20 19:28 Dose: 40 mg Documented by: Methylprednisolone Sodium Succinate (Methylprednisolone Sodium Succinate 125 Mg/2 Ml Sdv) 125 mg IVPUSH ONETIME ONE Stop: 08/10/20 01:53 Last Admin: 08/10/20 03:02 Dose: 125 mg Documented by: Methylprednisolone Sodium Succinate (Methylprednisolone Sodium Succinate 125 Mg/2 Ml Sdv) 125 mg IVPUSH ONETIME ONE Stop: 08/10/20 21:15 Last Admin: 08/10/20 21:30 Dose: 125 mg Documented by: Metoprolol Succinate (Metoprolol Succinate 25 Mg Tab.Er) 25 mg PO BID [facility] Last Admin: 08/10/20 07:56 Dose: 25 mg Documented by: Nicotine (Nicotine 21 Mg/24 Hr Patch) 21 mg TRDERM DAILY [facility] Last Admin: 08/10/20 18:07 Dose: Not Given Documented by: Ondansetron HCl (Ondansetron 4 Mg/2 Ml Sdv) 4 mg IVPUSH ONETIME ONE Stop: 08/14/20 07:52 Last Admin: 08/14/20 07:58 Dose: 4 mg Documented by: Oxybutynin Chloride (Oxybutynin 5 Mg Tab) 2.5 mg PO ONETIME ONE Stop: 08/13/20 23:01 Last Admin: 08/13/20 23:09 Dose: 2.5 mg Documented by: Quetiapine Fumarate (Quetiapine 100 Mg Tab) 50 mg PO BEDTIME [facility] Last Admin: 08/10/20 20:47 Dose: Not Given Documented by: Quetiapine Fumarate (Quetiapine 100 Mg Tab) 50 mg PO ONETIME STA Stop: 08/10/20 03:22 Last Admin: 08/10/20 03:32 Dose: 50 mg Documented by: Quetiapine Fumarate (Quetiapine 100 Mg Tab) 50 mg PO BEDTIME [facility] - Exam Quality Assessment: Reports: DVT Prophylaxis. Denies: Supplemental Oxygen, Central Line/PICC, Urine Catheter, Skin Breakdown General: Reports: Alert, Oriented, Cooperative, No Acute Distress HEENT: Reports: Pupils Equal, Pupils Reactive, EOMI, Mucous Membr. Moist/[place], Other (Patient is wearing glasses. No nystagmus) Neck: Reports: Supple, Trachea Midline, No JVD, No Thyromegaly, Carotid Bruit (Mild bilateral carotid bruits). Denies: Lymphadenopathy Lungs: Reports: Normal Respiratory Effort, Rhonchi (Occasional mild bilateral), Wheezing (Occasional mild bilateral). Denies: Rales Cardiovascular: Reports: Regular Rate, Regular Rhythm, No Murmurs. Denies: Gallops, Rubs GI/Abdominal Exam: Normal Bowel Sounds, Soft, Non-Tender, No Organomegaly, No Distention, No Abnormal Bruit, No Mass, Pelvis Stable, Other (Obese). No: Guarding (Male) Exam: Deferred Rectal (Males) Exam: Deferred Back Exam: Reports: Normal Inspection, Full Range of Motion. Denies: CVA Tenderness (L), CVA Tenderness (R), Muscle Spasm Extremities: Normal Inspection, Normal Range of Motion, Non-Tender, No Pedal Edema, Normal Capillary Refill. No: Kaitlin's Sign Skin: Reports: Warm, Dry, Intact. Denies: Ecchymosis Neurological: Reports: No New Focal Deficit, Other (No clinical orthostasis. Stable chronic mental deficit.) Psy/Mental Status: Reports: Anxious (Mild), Depressed (Mild). Denies: Agitated, Hallucinations, Withdrawal Symptoms
[2020-08-14] MEDS: Albuterol/Ipratropium 3.0-0.5 MG/3 ML Neb Soln NEB SCH (10:11)
[2020-08-14] MEDS: Metoprolol Succinate 25 MG Tab.ER PO SCH (10:11)
[2020-08-14] MEDS: Lisinopril 20 MG Tab PO SCH (10:11)
== END 2020-08-14 13:22 | DRG 191 ==
LOC: LL.ED 00:46 → LL.MS 01:11 → OBSVTOIN 15:28
PROVIDERS: ADMIT Emergency Medicine; ATTEND Emergency Medicine
DX: R53.1 Weakness (principal); R29.6 Repeated falls; Z91.81 History of falling; J43.1 Panlobular emphysema; G91.3 Post-traumatic hydrocephalus, unspecified; E87.1 Hypo-osmolality and hyponatremia; F41.8 Other specified anxiety disorders; E88.09 Other disorders of plasma-protein metabolism, not elsewhere classified; E83.51 Hypocalcemia; E78.2 Mixed hyperlipidemia; I25.10 Atherosclerotic heart disease of native coronary artery without angina pectoris; I10 Essential (primary) hypertension; G47.30 Sleep apnea, unspecified; M89.49 Other hypertrophic osteoarthropathy, multiple sites; Z20.822 Contact with and (suspected) exposure to COVID-19; H54.7 Unspecified visual loss; J30.9 Allergic rhinitis, unspecified; E78.00 Pure hypercholesterolemia, unspecified; G47.00 Insomnia, unspecified; K59.09 Other constipation; F41.0 Panic disorder [episodic paroxysmal anxiety]; M81.0 Age-related osteoporosis without current pathological fracture; F32.9 Major depressive disorder, single episode, unspecified; F41.9 Anxiety disorder, unspecified; M85.80 Other specified disorders of bone density and structure, unspecified site; E55.9 Vitamin D deficiency, unspecified; Z96.651 Presence of right artificial knee joint; F10.21 Alcohol dependence, in remission; F17.210 Nicotine dependence, cigarettes, uncomplicated; Z79.82 Long term (current) use of aspirin; K21.9 Gastro-esophageal reflux disease without esophagitis; K57.30 Diverticulosis of large intestine without perforation or abscess without bleeding; N40.0 Benign prostatic hyperplasia without lower urinary tract symptoms; G89.29 Other chronic pain; M54.9 Dorsalgia, unspecified; Z79.899 Other long term (current) drug therapy; I25.2 Old myocardial infarction; Z87.01 Personal history of pneumonia (recurrent); Z90.49 Acquired absence of other specified parts of digestive tract; Z91.19 Patient's noncompliance with other medical treatment and regimen; Z86.010 Personal history of colon polyps; Z87.820 Personal history of traumatic brain injury; Z20.828 Contact with and (suspected) exposure to other viral communicable diseases
CPT/HCPCS: 36415; 71045; 80053; 81001; 82272; 83605; 83735; 83880; 84484; 85025; 85379; 93005; 93010; 94640; 96374; 97162-GP; 97165-GO; 97530-GO; 97530-GP; 99222; 99232; 99239; 99285-25; A9270-GY; J1650; J2405; J2930; J7620-GY; U0002